=== PATIENT | female | born 1955 | race Caucasian/White ===

== ENCOUNTER 2018-10-03 14:57 | Emergency (ER) | payer OTHER, SELFPAY ==
[2018-10-03 14:58] VITALS: BP 207/92; PULSE 77; RESP 16; TEMP 36.4; O2SAT 97; BMI 49.1
--- NOTE | 2018-10-03 15:06 | RAD_ITS ---
STUDY: X-RAY - LEFT ANKLE REASON FOR EXAM: Female, 62 years old. Injury TECHNIQUE: view(s) of the ankle. COMPARISON: None. Talar dome appears intact. Plantar calcaneal spurring. Anterior process of the calcaneus is within normal limits. Fifth metatarsal base appears intact. Lateral malleolus is within normal limits. The lateral process of the talus is within normal limits. IMPRESSION: No definite evidence for acute fractures. Electronically Signed: Meño Hamilton, at 15:55 EST Tel , Service support , RAD/Ankle min 3 Views
--- NOTE | 2018-10-03 15:07 | ED.VISSUMM ---
- ER Visit Summary Date of Service: 10/03/18 Chief Complaint: Left ankle pain History of Present Illness: The patient is a 62 F who has left ankle pain. She stepped out of her truck when her ankle twisted and she fell down on her left side. No head trauma or LOC. She has pain in the left ankle. She describes it more of an inversion injury. She has pain in the medial lateral part of the ankle. She was able to walk on it but it caused her significant pain. She did ice it but took no medications for this. No previous injuries or fractures to this ankle Physical Examination: Vital signs are reviewed. Left ankle exam reveals tenderness on the medial and lateral malleolar swelling. Decreased range of motion secondary to pain. She has 2+ DP pulses. Test Results: Left ankle x-ray reveals no evidence of fracture. Emergency Department Course and Treatment: Patient was medicated with one [place] here. I will give her a walking boot as well as an NSAID for pain at home. She will ice and elevate and will follow up with her PCP Treatment Plan: [] Disposition: Discharge Impression: Left ankle sprain This note was generated with The [employer] dictation software. It may contain incorrect words, spelling, and punctuation that were not noted in review of the chart prior to signing ED Disposition - Plan for ED Patient: Chief Complaint: Lower Extremity Injury Referrals: Mg Matias [Primary Care Provider] -
[2018-10-03] MEDS: HYDROcodone Bitartrate/Apap 5/325 Tablet PO (15:22)
--- NOTE | 2018-10-03 16:00 | ED.DEP ---
ED Disposition - Plan for ED Patient: Disposition: Home or Assisted Living Chief Complaint: Lower Extremity Injury Instructions: ED Sprain Ankle W X Ray Prescriptions: Naproxen [Naprosyn] 500 mg PO BID PRN #20 tab Referrals: Mg Matias [Primary Care Provider] -
[2018-10-03 16:25] VITALS: BP 134/78; PULSE 67; RESP 16; O2SAT 97
== END 2018-10-03 16:26 | disposition home or self-care (01) ==
PROVIDERS: Emergency Provider Emergency Medicine; Family Provider Family Medicine; PCP Family Medicine
DX: S93.402A Sprain of unspecified ligament of left ankle, initial encounter (principal); I10 Essential (primary) hypertension; Z79.899 Other long term (current) drug therapy; X50.1XXA Overexertion from prolonged static or awkward postures, initial encounter; Y93.89 Activity, other specified; Y92.89 Other specified places as the place of occurrence of the external cause; Y99.8 Other external cause status
CPT/HCPCS: 73610; 99283

== ENCOUNTER 2019-06-07 08:00 | Outpatient (RCR) | payer OTHER, SELFPAY | END 2019-06-20 23:59 | LOC: NS 08:00 | PROVIDERS: Family Provider Family Medicine; PCP Family Medicine; Visit Provider Family Medicine | DX: E66.01 Morbid (severe) obesity due to excess calories (principal); Z68.42 Body mass index [BMI] 45.0-49.9, adult; Z71.3 Dietary counseling and surveillance | CPT/HCPCS: 97802; 97803 ==

== ENCOUNTER 2019-07-20 08:30 | Outpatient (RCR) | payer OTHER, SELFPAY | END 2019-07-21 23:59 | LOC: NS 08:30 | PROVIDERS: Family Provider Family Medicine; PCP Family Medicine; Visit Provider Family Medicine | DX: E66.01 Morbid (severe) obesity due to excess calories (principal); Z68.42 Body mass index [BMI] 45.0-49.9, adult; Z71.3 Dietary counseling and surveillance | CPT/HCPCS: 97803 ==

== ENCOUNTER 2019-08-09 17:28 | Outpatient (RCR) | payer OTHER, SELFPAY | END 2019-08-20 23:59 | LOC: NS 17:28 | PROVIDERS: Family Provider Family Medicine; PCP Family Medicine; Visit Provider Family Medicine | DX: Z71.3 Dietary counseling and surveillance (principal); E66.01 Morbid (severe) obesity due to excess calories; Z68.42 Body mass index [BMI] 45.0-49.9, adult | CPT/HCPCS: 97803 ==

== ENCOUNTER 2019-09-19 09:00 | Outpatient (RCR) | payer OTHER, SELFPAY | END 2019-09-20 23:59 | LOC: NS 09:00 | PROVIDERS: Family Provider Family Medicine; PCP Family Medicine; Visit Provider Family Medicine | DX: Z71.3 Dietary counseling and surveillance (principal); E66.01 Morbid (severe) obesity due to excess calories; Z68.42 Body mass index [BMI] 45.0-49.9, adult | CPT/HCPCS: 97803 ==

== ENCOUNTER 2019-10-18 09:00 | Outpatient (RCR) | payer OTHER, SELFPAY | END 2019-10-21 23:59 | LOC: NS 09:00 | PROVIDERS: Family Provider Family Medicine; PCP Family Medicine; Visit Provider Family Medicine | DX: Z71.3 Dietary counseling and surveillance (principal); E66.01 Morbid (severe) obesity due to excess calories; Z68.42 Body mass index [BMI] 45.0-49.9, adult | CPT/HCPCS: 97803 ==

== ENCOUNTER 2019-11-09 09:31 | Outpatient (RCR) | payer OTHER, SELFPAY | END 2019-11-19 23:59 | LOC: NS 09:31 | PROVIDERS: Family Provider Family Medicine; PCP Family Medicine; Visit Provider Family Medicine | DX: Z71.3 Dietary counseling and surveillance (principal); E66.01 Morbid (severe) obesity due to excess calories; Z68.42 Body mass index [BMI] 45.0-49.9, adult | CPT/HCPCS: 97803 ==

== ENCOUNTER 2019-12-08 09:00 | Outpatient (RCR) | payer OTHER, SELFPAY | END 2019-12-20 23:59 | LOC: NS 09:00 | PROVIDERS: Family Provider Family Medicine; PCP Family Medicine; Visit Provider Family Medicine | DX: Z71.3 Dietary counseling and surveillance (principal); E66.01 Morbid (severe) obesity due to excess calories; Z68.42 Body mass index [BMI] 45.0-49.9, adult | CPT/HCPCS: 97803 ==

== ENCOUNTER 2020-01-11 08:30 | Outpatient (RCR) | payer OTHER, SELFPAY | END 2020-01-19 23:59 | LOC: NS 08:30 | PROVIDERS: Family Provider Family Medicine; PCP Family Medicine; Visit Provider Family Medicine | DX: Z71.3 Dietary counseling and surveillance (principal); E66.01 Morbid (severe) obesity due to excess calories; Z68.42 Body mass index [BMI] 45.0-49.9, adult | CPT/HCPCS: 97803 ==

== ENCOUNTER 2020-02-08 10:00 | Outpatient (RCR) | payer OTHER, SELFPAY | END 2020-02-19 23:59 | LOC: NS 10:00 | PROVIDERS: Family Provider Family Medicine; PCP Family Medicine; Visit Provider Family Medicine | DX: Z71.3 Dietary counseling and surveillance (principal); E66.01 Morbid (severe) obesity due to excess calories; Z68.42 Body mass index [BMI] 45.0-49.9, adult | CPT/HCPCS: 97803 ==

== ENCOUNTER 2020-03-13 21:52 | Inpatient (IN) | payer OTHER, SELFPAY ==
[2020-03-13 21:53] VITALS: BP 93/51; PULSE 55; RESP 15; TEMP 36.6; O2SAT 99; BMI 41.1
--- NOTE | 2020-03-13 22:23 | EKG12_ITS ---
Test Reason : DIZZINESS Blood Pressure : / mmHG Vent. Rate : 051 BPM Atrial Rate : 051 BPM P-R Int : 142 ms QRS Dur : 096 ms QT Int : 450 ms P-R-T Axes : 062 -17 030 degrees QTc Int : 414 ms Sinus bradycardia Otherwise normal ECG Confirmed by MIRYAM MEJIA ([id number]), tape editor YANETH RAMÍREZ ([id number]) on 03/20/2020 8:07:14 AM Referred By: RAGHAV Confirmed By:MIRYAM MEJIA
[2020-03-13 22:54] VITALS: BP 91/61; PULSE 50; RESP 16; O2SAT 99
[2020-03-13 22:54] LABS: Absolute Lymphocyte Count 2.62 X10^3/uL (0.83-4.51); Absolute Neutrophil Count 17.4 X10^3/uL (2.0-7.7); Basophil# 0.05 X10^3/uL; Basophil% 0.2 % (0-1); Eosinophil# 0.22 X10^3/uL; Hematocrit 37.2 % (37-47); Hemoglobin 11.7 g/dL (12.0-15.0); Lymphocyte # 2.62 X10^3/ul (4.0); Lymphocyte % 11.7 % (19-41); Mean Corp Hgb Conc 31.5 g/dL (32-36); Mean Corpuscular Hgb 29.1 pg (27.0-32.0); Mean Corpuscular Volume 92.5 fL (81-99); Mean Platelet Vol. 11.3 fl (6.2-12.0); Monocyte# 1.97 X10^3/uL; Monocyte% 8.8 % (0-10); NRBC Flagged by Analyzer 0 % (0-5); Neutrophil # 17.35 X10^3/uL (2.7-7.7); Neutrophil % 77.7 % (47-70); POSITIVE DIFFERENTIAL YES; Platelet Count 264 K/mm3 (150-450); RBC Distribution Width CV 13.5 % (11.6-14.6); RBC Distribution Width SD 46.5 fl (35.1-43.9); Red Blood Count 4.02 M/mm3 (4.2-5.4); White Blood Count 22.3 K/mm3 (4.4-11.0)
[2020-03-13] MEDS: 0.9% Normal Saline 1,000 ML 1000 ML IV (22:56)
[2020-03-13 22:57] VITALS: BP 86/58; BP 91/61; BP 98/59; PULSE 49; PULSE 53; PULSE 60
--- NOTE | 2020-03-13 23:00 | RAD_ITS ---
STUDY: X-RAY CHEST REASON FOR EXAM: Female, 64 years old. Dizziness, history of vertigo. TECHNIQUE: AP portable chest. COMPARISON: None. FINDINGS: The lungs are clear and expanded. There is no demonstrated pleural abnormality. No pneumothorax. Large hiatal hernia. Normal size heart. Normal mediastinum and garland. Normal visualized pulmonary arteries. Normal visualized aortic arch and descending thoracic aorta. Normal visualized thoracic spine. Normal visualized ribs, clavicles, and shoulders. There is no demonstrated abnormality of the visualized soft tissue structures of the upper abdomen. RAD/Chest 1 View (Portable) IMPRESSION: No acute cardiopulmonary disease. Large hiatal hernia. Electronically Signed: Lorenzo Robledo MD at 23:16 EDT , Service support ,
[2020-03-13 23:09] LABS: ALB/GLOB Ratio 0.9 RATIO (0.9-2.4); AST(SGOT) 16 U/L (15-37); Alanine Aminotransfer ALT/SGPT 18 U/L (13-56); Albumin, Serum 3.8 g/dL (3.2-5.0); Alkaline Phosphatase 109 U/L (45-117); Anion Gap 7 (5-15); BUN 29 mg/dL (7-18); BUN/Creat Ratio 10.5 RATIO (10-20); Calcium,Total 10.8 mg/dL (8.5-10.1); Chloride 102 mmol/L (98-107); Creatinine, Serum 2.75 mg/dL (0.55-1.02); EST Glomerular Filtration Rate 19 mL/min (>60); Est Glom Filt Rate - Afr Amer 22 mL/min (>60); Globulin 4.2 g/dL (2.2-4.2); Glucose 121 mg/dL (74-106); Potassium 4.1 mmol/L (3.5-5.1); Sodium Level 137 mmol/L (136-145)
[2020-03-13 23:17] LABS: Differential Comment SCANNED; Differential Indicated SCAN CRITERIA MET
[2020-03-13 23:41] LABS: Mucous, Urine 0 SEEN /hpf (<or=2+)
[2020-03-13 23:43] LABS: Color, Urine Yellow (Yellow); Glucose, Dipstick Normal (Normal); Ketone-Dipstick Negative (Negative); Leukocyte Esterase-Dipstick 500 /ul (Negative); Nitrite-Dipstick Negative (Negative); Occult Blood-Urine 150 /ul (Negative); Protein-Dipstick 30 mg/dl (Negative); Urine Bilirubin Dipstick Negative (Negative); Urine Clarity Sl. Cloudy (Clear); Urine Urobilinogen 1 mg/dl (Normal)
[2020-03-13 23:51] LABS: Bacteria 2+ /hpf (None Seen); Red Blood Cells-Urine 10-25 SEEN /hpf (0-5); Squamous Epithelial Cells - UA 5-10 SEEN /hpf (5-10); White Blood Cells 10-25 SEEN /hpf (0-5)
[2020-03-13] MEDS: 0.9% Normal Saline 1,000 ML 999 ML IV (23:52)
[2020-03-14] VITALS (35 sets, daily range): BP systolic 76–134; BP diastolic 35–90; PULSE 46–75; RESP 13–29; TEMP 36.2–36.6; O2SAT 95–100; BMI 41.9
--- NOTE | 2020-03-14 00:06 | HP.PCM_ITS ---
Problem List (1) Severe sepsis Status: Acute (2) Cystitis Status: Acute (3) Bradycardia Status: Acute (4) JERILYN (acute kidney injury) Status: Acute History of Present Illness Date of Admission: 03/14/20 Chief Complaint: Lightheadedness. The patient is a 64 year old F with a significant history of vertigo; hypertension; and thyroid cancer status post thyroidectomy who presents emergency department with lightheadedness. Her lightheadedness started about a week ago is been on and off. On the day of presentation she went to work and because she was lightheaded and nearly passed out she was told to seek medical care. Also about a week ago patient fell. She is unsure whether she passed out with her falling. Patient reports decrease in frequency of urination. She denies any other urinary symptoms. Patient was hypotensive at the emergency department. She had leukocytosis and her urinalysis was abnormal. Further her creatinine was 2.75. Patient reported that recently her creatinine at the PCPs office was around 1.4 and for which reason her diuretics were stopped. Past Medical History Medical History: Medical History (Last Updated 03/14/20 @ 01:[address] Boby Fuentes MD) Hypertension I10 Allergies No Known Allergies Allergy (Verified 03/13/20 21:53) Home Medications: Ambulatory Orders Medication Instructions Recorded Levothyroxine Sodium [Synthroid] 125 mcg PO DAILY 02/23/14 Meclizine HCl [Antivert] 25 mg PO 4X/DAY PRN PRN #40 tablet 02/23/14 Ferrous Sulfate [Iron] 325 mg PO BID 03/04/17 Losartan Potassium [Cozaar] 100 mg PO DAILY 03/04/17 Carvedilol [Coreg] 3.125 mg PO BID 10/03/18 Naproxen [Naprosyn] 500 mg PO BID PRN #20 tab 10/03/18 Pantoprazole Sodium [Protonix] 40 mg PO DAILY 10/03/18 Solifenacin Succinate [Vesicare] 5 mg PO DAILY 10/03/18 Surgical History: cholecystectomy, hysterectomy, - - Thyroidectomy Smoking Status: Former smoker - *Family History Maternal History Items: Cancer - Lung and pancreatic cancer. Paternal History Items: Cancer - Lung cancer Review of Systems Constitutional: Denies: Chills, Fever, Weight Change HEENT: Denies: Head Aches, Sinus Congestion, Sinus Drainage Cardiovascular: Reports: Light Headedness. Denies: Chest Pain, Palpitations Respiratory: Denies: Cough, Shortness of breath at rest, Sputum production Gastrointestinal: Denies: Abdominal Pain, Nausea, Vomiting Genitourinary: Reports: Frequency - Decreased urination. Denies: Dysuria Musculoskeletal: Denies: Joint Pain, Joint Tenderness Skin: Denies: Rash, Wounds Neurological: Denies: Numbness, Tingling, Focal weakness Psychiatric: Denies: Anxiety, Depression, Homicidal Ideations, Suicidal Ideations Hematologic/ Lymphatic: Denies: Easy Bruising, Easy Bleeding VTE Information - Inpt Only VTE Present on Admission: No VTE Mechan Device Prophylaxis: None VTE Pharm Prophylaxis ordered?: Yes Patient Problems: Active and Suspected Problems (Last Updated 03/14/20 @ 01:[address] Boby Fuentes MD) Severe sepsis (Acute) Cystitis (Acute) Bradycardia (Acute) JERILYN (acute kidney injury) (Acute) - Physical Exam Vitals/I&O's: Vital Signs Temp Pulse Resp BP Pulse Ox 97.8 F 55 L 16 101/71 100 03/13/20 21:53 03/14/20 00:04 03/14/20 00:04 03/14/20 00:04 03/14/20 00:04 Oxygen Delivery Method Room Air Weight: 98.883 kg Body Mass Index (BMI) 41.1 Intake and Output for Last 24 Hours 03/12/20 03/13/20 03/14/20 23:59 23:59 23:59 Intake Total 1000 / 1000 Balance 1000 / 1000 General: Alert, Oriented x3, Cooperative HEENT: Atraumatic, PERRLA, EOMI, Normocephalic Neck: Supple, No JVD, Negative Carotid Bruits Lungs: Clear to auscultation, Normal air movement Cardiovascular: Normal S1, Normal S2, No murmurs, Bradycardic Abdomen: Bowel Sounds Present, Soft, Non Tender Extremities: No edema, Capillary Refill Less than 3 Seconds Skin: No rashes, No breakdown Musculoskeletal: No Tenderness to Palpation of Joints or Extremities Neurological: Cranial nerves II-XII grossly intact Psych/Mental Status: Normal Affect, Appropriate Laboratory Results 03/13/20 22:20: WBC 22.3 H, RBC 4.02 L, Hgb 11.7 L, Hct 37.2, MCV 92.5, MCH 29.1, MCHC 31.5 L, RDW Std Deviation 46.5 H, RDW Coeff of Dwain 13.5, Plt Count 264, MPV 11.3, Immature Gran % (Auto) 0.600, Neut % (Auto) 77.7 H, Lymph % (Auto) 11.7 L, [place] % (Auto) 8.8, Eos % (Auto) 1.0, Baso % (Auto) 0.2, Absolute Neuts (auto) 17.4 H, Absolute Lymphs (auto) 2.62, Nucleated RBC % 0, Differential Comment SCANNED, Diff Path Review January03/13/20 22:20: Sodium 137, Potassium 4.1, Chloride 102, Carbon Dioxide 28.0, Anion Gap 7, BUN 29 H, Creatinine 2.75 H, Estim Creat Clear Calc 15.80, Est GFR (MDRD) Af Amer 22 L, Est GFR (MDRD) Non-Af 19 L, BUN/Creatinine Ratio 10.5, Glucose 121 H, Calcium 10.8 H, Total Bilirubin 1.80 H, AST 16, ALT 18, Alkaline Phosphatase 109, Troponin I < 0.015, Total Protein 8.0, Albumin 3.8, Globulin 4.2, Albumin/Globulin Ratio 0.9 03/13/20 22:20: Lactic Acid 1.0 03/13/20 23:35: Urine Color Yellow, Urine Clarity Sl. Cloudy, Urine pH 5.0, Ur Specific [place] 1.020, Urine Protein 30 H, Urine Glucose (UA) Normal, Urine Ketones Negative, Urine Occult Blood 150 H, Urine Nitrite Negative, Urine Bilirubin Negative, Urine Urobilinogen 1 H, Ur Leukocyte Esterase 500 H, Urine RBC 10-25 SEEN, Urine WBC 10-25 SEEN, Ur Squamous Epith Cells 5-10 SEEN, Urine Bacteria 2+, Urine Mucus 0 SEEN Current Medications Sodium Chloride () 1,000 mls @ 999 mls/hr IV .Q1H1M ONE Stop: 03/14/20 00:36 Last Admin: 03/13/20 23:52 Dose: 999 mls/hr Documented by: Vancomycin HCl (Vancomycin) 1,000 mg in 200 mls @ 200 mls/hr IV X1 ONE Stop: 03/14/20 01:29 Assessment/Plan All Active Problems (Last Updated 03/14/20 @ 01:[address] Boby Fuentes MD) Severe sepsis (Acute) Cystitis (Acute) Bradycardia (Acute) JERILYN (acute kidney injury) (Acute) The patient is a 64 year old F with a significant history of vertigo; hypertension; and thyroid cancer status post thyroidectomy who presents emergency department with lightheadedness; presyncope; and found to have leukocytosis; acute bradycardia; and severely elevated creatinine. Severe sepsis Systolic blood pressure of less than 90. Patient received normal saline 30 mL's per kilogram bolus per septic shock protocol and patient responded. She has a white count of 22.3 with neutrophilic predominance. Emergency department doctor reported 1 systolic blood pressure in the 70s. Also her blood pressure standing was 86/58. Chest x-ray was unremarkable. Urinalysis was abnormal. Urine culture is pending. Lactic acid was normal. Vancomycin and Zosyn were given at emergency department. Zosyn IV ordered inpatient. Admit to intensive care unit Continue saline at 150 mL's per hour. Trend CBC and BMP. Hold home blood pressure medications. Lamp Mechanic consult. Symptomatic bradycardia. Patient on Coreg. Held. JERILYN Creatinine on presentation was 2.75. Reportedly recently her creatinine was 1.4 at the outpatient setting. Review of old record showed her on 03/03/2017 her creatinine was 0.97. And on 02/23/2014 her creatinine was 0.9. Her BUN is 29. BUN over creatinine is at 10.5. Likely intrinsic renal. Home medications include losartan and naproxen. Hold both losartan and naproxen. Avoid nephrotoxins. Trend BMP. Gets urine electrolytes including urine creatinine; urine urea; urine sodium. Get ultrasound of urine and bladder. Consults nephrology Received IV bolus at the emergency department per sepsis protocol. Continue patient on normal saline at 150 mL's per hour. DVT prophylaxis Subcutaneous heparin ordered. Inpatient E&M: 35170 Init Hosp L3
[2020-03-14] MEDS: Vancomycin IV 1,000 MG/200 ML BAG 200 MG IV (00:22)
--- NOTE | 2020-03-14 01:00 | US_ITS ---
STUDY: RENAL ULTRASOUND - COMPLETE REASON FOR EXAM: Female, 64 years old. JERILYN elevated BUN/creatinine TECHNIQUE: Ultrasound evaluation of the kidneys was performed with real-time and static mcfarlane-scale imaging. COMPARISON: None. FINDINGS: RIGHT KIDNEY: Normal location of the right kidney, which is normal in size. The right kidney measures 9.3 x 4.6 x 4.1 cm. There is a normal cortex of the right kidney. The renal cortex measures 1.1 cm. There is no right renal mass or cyst. There are no right renal calculi. There is no right hydronephrosis. DISTAL RIGHT URETER: There is non-visualization of the distal right ureter. There is no demonstrated right ureterovesical junction calculus. There is a visualized right ureteral jet. LEFT KIDNEY: Normal location of the left kidney, which is normal in size. The left kidney measures 9.6 x 4.8 x 4.3 cm. There is a normal cortex of the left kidney. The renal cortex measures 1.5 cm. There is no left renal mass or cyst. There are no left renal calculi. There is no left hydronephrosis. DISTAL LEFT URETER: There is non-visualization of the distal left ureter. There is no demonstrated left ureterovesical junction calculus. There is a visualized left ureteral jet. AORTA: There is no elongation or tortuosity of the abdominal aorta. I.V.C.: The IVC is patent. BLADDER: The bladder is sonographically normal US/Kidney and Bladder IMPRESSION: No suspicious sonographic findings Electronically Signed: Daniel Mann MD at 8:57 EDT , Service support ,
[2020-03-14] MEDS: 0.9% Normal Saline 1,000 ML 150 ML IV ×4 (01:33→20:46)
--- NOTE | 2020-03-14 02:01 | ED.VIS.GEN ---
History of Present Illness Chief Complaint: Dizziness Narrative: Patient presenting for evaluation secondary to lightheadedness. Patient states that over the course of about the last week and a half she has been dealing with lightheadedness. She reports that this is a lightheaded type feeling and not a vertiginous feeling as she has a history of vertigo that is worsened by rolling over in bed. Patient states that the lightheadedness has been bad enough that occasionally she is even had some syncopal episodes over the course of the last week and a half. She denies that there is any sort of preceding chest pain palpitations or shortness of breath associated with this. Patient states that she felt bad enough at work today that her boss sent her to the hospital to get checked out. Patient does have an underlying history of hypertension, was recently taken off of her diuretic due to some increased creatinine numbers. She denies recent infectious signs or symptoms such as fever cough nausea vomiting or diarrhea. Patient does report that she has had around a 40 to 50 pound intentional weight loss recently due to participating in a weight loss program. Review of systems otherwise negative. Past Medical History - Allergies and Home Meds Allergies/Adverse Reactions: Allergies No Known Allergies Allergy (Verified 03/13/20 21:53) Prior records reviewed: Yes Past Medical History: - - Hypertension, GERD, hypothyroidism Surgical History: cholecystectomy, hysterectomy, - - Thyroidectomy Lives: Spouse/ Significant Other Smoking Status: Former smoker Alcohol: None Drugs: None - Family History Maternal Family History: Reports: Cancer - Lung and pancreatic cancer. Paternal Family History: Reports: Cancer - Lung cancer Review of Systems All systems negative except as indicated General: Reports: - - Lightheadedness Eyes: Denies: Visual changes - bilaterally, Diplopia ENT: Denies: Rhinorrhea, Sore throat Cardiovascular: Denies: Chest pain, Palpitations Respiratory: Denies: Dyspnea, Cough, Dyspnea on exertion Gastrointestinal: Denies: Abdominal pain, Nausea, Vomiting, Diarrhea, Melena, Hematochezia Genitourinary: Denies: Dysuria, Hematuria, Frequency Musculoskeletal: Denies: Back pain, Extremity Pain Skin: Denies: Rash, Wounds Neurological: Denies: Headache, Weakness, Numbness Physical Exam Vital Signs/Narrative: Vital Signs Temp Pulse Pulse Pulse Pulse Resp BP 03/14/20 00:20 97.9 F 55 L 17 108/90 H 03/14/20 00:04 55 L 16 101/71 03/13/20 22:57 49 L 53 L 60 03/13/20 22:54 50 L 16 91/61 BP BP BP Pulse Ox 03/14/20 00:20 99 03/14/20 00:04 100 03/13/20 22:57 91/61 98/59 L 86/58 L 03/13/20 22:54 99 Inital Vital Signs reviewed: Yes General: Well nourished, Well developed, No Acute Distress Head: Normocephalic, Atraumatic Eyes: Perrl, EOMI ENT: Moist mucous membranes, No rhinorrhea Neck: Supple, Nontender Cardiovascular: Regular rhythm, Bradycardia, - - 2+ radial pulses bilaterally symmetric Respiratory: No distress, CTA bilaterally, Chest nontender Abdomen: Soft, Nontender, Nondistended, Normal bowel sounds Back: Nontender, Normal Inspection Extremities: Nontender, No edema Skin: Normal color, No rash Neurological: Alert, Oriented x3, Cranial nerves II-XII grossly intact, Normal Strength, Normal Sensation Psychological: Normal affect, Normal Mood Diagnostic/Tx/Re-eval Clinical Impression(s) from Imaging Studies Chest X-Ray 03/13/20 23:00 IMPRESSION: No acute cardiopulmonary disease. Large hiatal hernia. Electronically Signed: Lorenzo Robledo MD at 23:16 EDT , Service support , Laboratory Data 03/13/20 03/13/20 03/13/20 22:20 22:20 22:20 WBC 22.3 H RBC 4.02 L Hgb 11.7 L Hct 37.2 MCV 92.5 MCH 29.1 MCHC 31.5 L RDW Std Deviation 46.5 H RDW Coeff of Dwain 13.5 Plt Count 264 MPV 11.3 Immature Gran % (Auto) 0.600 Neut % (Auto) 77.7 H Lymph % (Auto) 11.7 L [place] % (Auto) 8.8 Eos % (Auto) 1.0 Baso % (Auto) 0.2 Absolute Neuts (auto) 17.4 H Absolute Lymphs (auto) 2.62 Nucleated RBC % 0 Differential Comment SCANNED Diff Path Review May foll Sodium 137 Potassium 4.1 Chloride 102 Carbon Dioxide 28.0 Anion Gap 7 BUN 29 H Creatinine 2.75 H Estim Creat Clear Calc 15.80 Est GFR (MDRD) Af Amer 22 L Est GFR (MDRD) Non-Af 19 L BUN/Creatinine Ratio 10.5 Glucose 121 H Lactic Acid 1.0 Calcium 10.8 H Total Bilirubin 1.80 H AST 16 ALT 18 Alkaline Phosphatase 109 Troponin I < 0.015 Total Protein 8.0 Albumin 3.8 Globulin 4.2 Albumin/Globulin Ratio 0.9 Urine Color Urine Clarity Urine pH Ur Specific [place] Urine Protein Urine Glucose (UA) Urine Ketones Urine Occult Blood Urine Nitrite Urine Bilirubin Urine Urobilinogen Ur Leukocyte Esterase Urine RBC Urine WBC Ur Squamous Epith Cells Urine Bacteria Urine Mucus 03/13/20 23:35 WBC RBC Hgb Hct MCV MCH MCHC RDW Std Deviation RDW Coeff of Dwain Plt Count MPV Immature Gran % (Auto) Neut % (Auto) Lymph % (Auto) [place] % (Auto) Eos % (Auto) Baso % (Auto) Absolute Neuts (auto) Absolute Lymphs (auto) Nucleated RBC % Differential Comment Diff Path Review Sodium Potassium Chloride Carbon Dioxide Anion Gap BUN Creatinine Estim Creat Clear Calc Est GFR (MDRD) Af Amer Est GFR (MDRD) Non-Af BUN/Creatinine Ratio Glucose Lactic Acid Calcium Total Bilirubin AST ALT Alkaline Phosphatase Troponin I Total Protein Albumin Globulin Albumin/Globulin Ratio Urine Color Yellow Urine Clarity Sl. Cloudy Urine pH 5.0 Ur Specific [place] 1.020 Urine Protein 30 H Urine Glucose (UA) Normal Urine Ketones Negative Urine Occult Blood 150 H Urine Nitrite Negative Urine Bilirubin Negative Urine Urobilinogen 1 H Ur Leukocyte Esterase 500 H Urine RBC 10-25 SEEN Urine WBC 10-25 SEEN Ur Squamous Epith Cells 5-10 SEEN Urine Bacteria 2+ Urine Mucus 0 SEEN - EKG Initial EKG Interpretation: - - Sinus bradycardia with a rate of 51, normal AR and QTc intervals. Isoelectric ST segments normal T waves no evidence of acute ischemia. - Medical Decision Making Patient presented secondary to dizziness. She is relatively well-appearing, but was found to be both hypotensive as well as bradycardic. IV was established she was given fluid resuscitation laboratory studies were obtained. PA and lateral chest x-ray by my personal review as well as radiology demonstrates no evidence of infection. Laboratory work-up shows the patient to have a leukocytosis above 20. Chemistry shows acute kidney injury with creatinine over 2. Lactic acid was found to be normal. Urinalysis shows potential for infection. Patient's blood pressure was responsive to fluids. I do not have a specific source of infection at this time, but the patient was empirically given vancomycin and Zosyn. Actually have more of a suspicion that the patient's lightheadedness is due to her blood pressure medications causing her to be hypotensive and have hypoperfusion of her kidneys, but regardless cultures were sent and the patient will be admitted for further work-up and treatment. Patient was discussed with the hospitalist and was admitted to intensive care due to her fluid responsive hypotension. - Critical Care Time Critical care time (excluding procedures): 30-74 minutes ED Disposition - Plan for ED Patient: Disposition: Acute Care Hospital [facility] Diagnosis: JERILYN (acute kidney injury), Bradycardia, Cystitis, Severe sepsis
[2020-03-14 02:09] LABS: Urine Sodium 39 mmol/L (Not Establ.)
[2020-03-14 04:32] LABS: Absolute Lymphocyte Count 3.47 X10^3/uL (0.83-4.51); Absolute Neutrophil Count 10.6 X10^3/uL (2.0-7.7); Basophil# 0.06 X10^3/uL; Basophil% 0.4 % (0-1); Eosinophil# 0.38 X10^3/uL; Eosinophils% 2.4 % (0-5); Hematocrit 31.1 % (37-47); Hemoglobin 9.8 g/dL (12.0-15.0); Lymphocyte # 3.47 X10^3/ul (4.0); Lymphocyte % 21.9 % (19-41); Mean Corp Hgb Conc 31.5 g/dL (32-36); Mean Corpuscular Hgb 29.5 pg (27.0-32.0); Mean Corpuscular Volume 93.7 fL (81-99); Mean Platelet Vol. 11.1 fl (6.2-12.0); Monocyte# 1.29 X10^3/uL; Monocyte% 8.1 % (0-10); NRBC Flagged by Analyzer 0 % (0-5); Neutrophil # 10.57 X10^3/uL (2.7-7.7); Neutrophil % 66.8 % (47-70); Platelet Count 199 K/mm3 (150-450); RBC Distribution Width CV 13.8 % (11.6-14.6); RBC Distribution Width SD 47.2 fl (35.1-43.9); Red Blood Count 3.32 M/mm3 (4.2-5.4); White Blood Count 15.8 K/mm3 (4.4-11.0)
[2020-03-14 04:45] LABS: Anion Gap 6 (5-15); BUN 28 mg/dL (7-18); BUN/Creat Ratio 13.5 RATIO (10-20); Calcium,Total 9.7 mg/dL (8.5-10.1); Chloride 107 mmol/L (98-107); Creatinine, Serum 2.07 mg/dL (0.55-1.02); EST Glomerular Filtration Rate 26 mL/min (>60); Est Glom Filt Rate - Afr Amer 31 mL/min (>60); Estimated Creatinine Clearance 19.98 ml/min; Glucose 96 mg/dL (74-106); Sodium Level 139 mmol/L (136-145)
[2020-03-14] MEDS: Levothyroxine 125 MCG Tablet PO (05:34)
[2020-03-14] MEDS: Heparin Injection (Vial) 5,000 UNIT/ML VIAL 5000 UNIT SC ×3 (05:34→20:53)
--- NOTE | 2020-03-14 06:18 | PCM.CON.CC ---
Problem List (1) Weight loss, intentional Status: Acute (2) Severe sepsis Status: Acute (3) Cystitis Status: Acute (4) Bradycardia Status: Acute (5) JERILYN (acute kidney injury) Status: Acute Reason for Consult Date of Consultation: 03/14/20 Reason for Consultation: Sepsis History of Present Illness: The patient is a 64 year old F, with past medical history listed below, who presented to [facility] on 03/14/2020 secondary to vertigo, orthostatic lightheadedness and presyncope. Patient reported that she had a similar type episode approximately a week ago, but had attributed this to not eating for 9 hours. When this recurred, patient was advised to come to the ER for evaluation. Patient had reported a decrease in urination and some mild dysuria. In the ER, patient was noted to be hypotensive with a leukocytosis and abnormal UA. Patient also noted to have an increase in creatinine to 2.75, which is significantly above baseline of 1.4. Patient has been treated for hypertension in the past and was on Coreg and a diuretic. The diuretic was recently stopped secondary to elevation of creatinine. Overnight, patient has remained hemodynamically stable. Patient has been bradycardic, but no fluid boluses or pressors have been required. Patient reports subjective improvement in overall condition, but states I have not stood up to test that yet. Patient does report a 40 pound weight loss secondary to dietary modification. Patient denies any chest pain, bowel pain, nausea or vomiting. Patient did have some constipation recently that was responsive to laxative therapy. Patient denies any lower extremity swelling, rashes or trauma. Patient does have a history of a thyroidectomy, but believes her thyroid is normal. Review of systems otherwise negative from a constitutional, HEENT, respiratory, cardiovascular, GI, genitourinary, musculoskeletal, skin, neurologic, psychiatric and hematologic system unless stated above. Past Medical History Medical History: Medical History (Last Updated 03/14/20 @ 01:[address] Boby Fuentes MD) Hypertension I10 Allergies No Known Allergies Allergy (Verified 03/13/20 21:53) Home Medications: Ambulatory Orders Medication Instructions Recorded Levothyroxine Sodium [Synthroid] 125 mcg PO DAILY 02/23/14 Meclizine HCl [Antivert] 25 mg PO 4X/DAY PRN PRN #40 tablet 02/23/14 Ferrous Sulfate [Iron] 325 mg PO BID 03/04/17 Losartan Potassium [Cozaar] 100 mg PO DAILY 03/04/17 Carvedilol [Coreg] 3.125 mg PO BID 10/03/18 Naproxen [Naprosyn] 500 mg PO BID PRN #20 tab 10/03/18 Pantoprazole Sodium [Protonix] 40 mg PO DAILY 10/03/18 Solifenacin Succinate [Vesicare] 5 mg PO DAILY 10/03/18 Surgical History: cholecystectomy, hysterectomy, - - Thyroidectomy Lives: Spouse/ Significant Other Smoking Status: Former smoker Alcohol: None Drugs: None - *Family History Maternal History Items: Cancer - Lung and pancreatic cancer. Paternal History Items: Cancer - Lung cancer Review of Systems Comment: See HPI Patient Problems: Active and Suspected Problems (Last Updated 03/14/20 @ 01:[address] Boby Fuentes MD) Severe sepsis (Acute) Cystitis (Acute) Bradycardia (Acute) JERILYN (acute kidney injury) (Acute) Weight loss, intentional (Acute) Objective: Chest x-ray was personally reviewed and appears to be within normal limits. - Physical Exam Vitals/I&O's: Vital Signs Temp Pulse Resp BP Pulse Ox 36.3 C L 52 L 29 H 97/65 99 03/14/20 02:10 03/14/20 05:00 03/14/20 05:00 03/14/20 05:00 03/14/20 05:00 Oxygen Delivery Method Room Air Weight: 97.2 kg Body Mass Index (BMI) 41.9 Intake and Output for Last 24 Hours 03/12/20 03/13/20 03/14/20 23:59 23:59 23:59 Intake Total 2425 / 2425 Balance 2425 / 2425 General: Alert, Oriented x3, Cooperative, No apparent distress, Well developed, - - Obese. Speaking in full sentences. HEENT: Atraumatic, PERRLA, EOMI, Normocephalic, - - No scleral icterus or injection noted Oral: Moist Mucosa, No Gingival or Mucosal Lesions/ Ulcerations Neck: Supple, No JVD, No Nodes, Trachea Midline Lungs: Clear to auscultation, Normal air movement, No rhonchi, No wheeze, No rales Cardiovascular: Regular Rhythm, Normal S1, Normal S2, No murmurs, Bradycardic, No rub noted, No Gallop, - - Sinus bradycardia noted on telemetry Abdomen: Bowel Sounds Present, Soft, Non Tender, Non-Distended, Obese Extremities: No clubbing, No cyanosis, No edema, Capillary Refill Less than 3 Seconds Skin: No rashes, No breakdown Musculoskeletal: No Tenderness to Palpation of Joints or Extremities Lymphatic: No Cervical, Supraclavicular, or Inguinal Adenopathy Neurological: Cranial nerves II-XII grossly intact, Neuro grossly intact, Motor Exam 5/5 strength throughout Psych/Mental Status: Alert and oriented to time, place, person, mood and affect Laboratory Results 03/13/20 22:20: WBC 22.3 H, RBC 4.02 L, Hgb 11.7 L, Hct 37.2, MCV 92.5, MCH 29.1, MCHC 31.5 L, RDW Std Deviation 46.5 H, RDW Coeff of Dwain 13.5, Plt Count 264, MPV 11.3, Immature Gran % (Auto) 0.600, Neut % (Auto) 77.7 H, Lymph % (Auto) 11.7 L, [place] % (Auto) 8.8, Eos % (Auto) 1.0, Baso % (Auto) 0.2, Absolute Neuts (auto) 17.4 H, Absolute Lymphs (auto) 2.62, Nucleated RBC % 0, Differential Comment SCANNED, Diff Path Review January foll 03/13/20 22:20: Sodium 137, Potassium 4.1, Chloride 102, Carbon Dioxide 28.0, Anion Gap 7, BUN 29 H, Creatinine 2.75 H, Estim Creat Clear Calc 15.80, Est GFR (MDRD) Af Amer 22 L, Est GFR (MDRD) Non-Af 19 L, BUN/Creatinine Ratio 10.5, Glucose 121 H, Calcium 10.8 H, Total Bilirubin 1.80 H, AST 16, ALT 18, Alkaline Phosphatase 109, Troponin I < 0.015, Total Protein 8.0, Albumin 3.8, Globulin 4.2, Albumin/Globulin Ratio 0.9 03/13/20 22:20: Lactic Acid 1.0 03/13/20 23:35: Urine Color Yellow, Urine Clarity Sl. Cloudy, Urine pH 5.0, Ur Specific [place] 1.020, Urine Protein 30 H, Urine Glucose (UA) Normal, Urine Ketones Negative, Urine Occult Blood 150 H, Urine Nitrite Negative, Urine Bilirubin Negative, Urine Urobilinogen 1 H, Ur Leukocyte Esterase 500 H, Urine RBC 10-25 SEEN, Urine WBC 10-25 SEEN, Ur Squamous Epith Cells 5-10 SEEN, Urine Bacteria 2+, Urine Mucus 0 SEEN 03/13/20 23:35: Urine Creatinine 224.00 03/13/20 23:35: Ur Random Sodium 39 03/14/20 04:25: WBC 15.8 H, RBC 3.32 L, Hgb 9.8 L, Hct 31.1 L, MCV 93.7, MCH 29.5, MCHC 31.5 L, RDW Std Deviation 47.2 H, RDW Coeff of Dwain 13.8, Plt Count 199, MPV 11.1, Immature Gran % (Auto) 0.400, Neut % (Auto) 66.8, Lymph % (Auto) 21.9, [place] % (Auto) 8.1, Eos % (Auto) 2.4, Baso % (Auto) 0.4, Absolute Neuts (auto) 10.6 H, Absolute Lymphs (auto) 3.47, Nucleated RBC % 0 03/14/20 04:25: Sodium 139, Potassium 4.0, Chloride 107, Carbon Dioxide 26.0, Anion Gap 6, BUN 28 H, Creatinine 2.07 H, Estim Creat Clear Calc 19.98, Est GFR (MDRD) Af Amer 31 L, Est GFR (MDRD) Non-Af 26 L, BUN/Creatinine Ratio 13.5, Glucose 96, Calcium 9.7 Clinical Impression(s) from Imaging Studies Chest X-Ray 03/13/20 23:00 IMPRESSION: No acute cardiopulmonary disease. Large hiatal hernia. Electronically Signed: Lorenzo Robledo MD at 23:16 EDT , Service support , Current Medications Acetaminophen (Tylenol) 650 mg PO Q6H PRN PRN PRN Reason: Pain Score 1-10/Temp > 100.7 F Dextrose (D50w Syringe) 0 gm IV X1 PRN; Protocol PRN Reason: Hypoglycemia Ferrous Sulfate (Ferrous Sulfate) 325 mg PO 1200,1700 MELISSA Glucagon () 1 mg IM .X1 PRN PRN Reason: Hypoglycemia Heparin Sodium (Porcine) (Heparin Na) 5,000 unit SC Q8 [facility] Last Admin: 03/14/20 05:34 Dose: 5,000 unit Documented by: Sodium Chloride () 1,000 mls @ 150 mls/hr IV .Q6H40M [facility] Last Admin: 03/14/20 01:33 Dose: 150 mls/hr Documented by: Piperacillin Sod/Tazobactam (Sod 3.375 gm/ Sodium Chloride) 50 mls @ 12.5 mls/hr IV Q12 [facility] Levothyroxine Sodium (Synthroid) 125 mcg PO DAILY@0600 [facility] Last Admin: 03/14/20 05:34 Dose: 125 mcg Documented by: Levothyroxine Sodium (Synthroid) 125 mcg PO Goldberg@0600 [facility] Magnesium Hydroxide (Milk Of Magnesia) 30 ml PO DAILY PRN PRN PRN Reason: Constipation Meclizine HCl (Antivert) 25 mg PO 4X/DAY PRN PRN PRN Reason: Vertigo Melatonin (Melatonin) 3 mg PO QHS PRN PRN PRN Reason: INSOMNIA Ondansetron HCl (Zofran) 4 mg IV Q8H PRN PRN PRN Reason: NAUSEA/VOMITING Pantoprazole Sodium (Protonix) 40 mg PO DAILY [facility] Sodium Chloride () 10 - 40 ml IV UD PRN PRN Reason: SALINE FLUSH Tolterodine Tartrate (Detrol La) 2 mg PO DAILY [facility] Assessment/Plan Active and Suspected Problems (Last Updated 03/14/20 @ 01:[address] Boby Fuentes MD) Severe sepsis (Acute) Cystitis (Acute) Bradycardia (Acute) JERILYN (acute kidney injury) (Acute) Weight loss, intentional (Acute) RECOMMENDATIONS: 1. Continue empiric antibiotics pending culture results 2. Agree with fluid resuscitation 3. Continue to hold home antihypertensive medications 4. Await renal ultrasound 5. Likely okay to leave the intensive care unit IMPRESSIONS: 1. Orthostatic hypotension with possible severe sepsis Unclear etiology at this time. Patient has been reporting some mild dysuria and does have leukocyte esterase noted on UA. Patient is on broad-spectrum antibiotics at this time with improvement in leukocytosis. Singh cultures are currently pending. Would continue antibiotics until cultures are resulted. Patient is also had a significant weight loss and may have accumulated beta-caprice leading to bradycardia overnight. Would continue to hold all antihypertensive medications. No pressors are indicated at this time. 2. Acute kidney injury Clinical suspicion for prerenal etiology. Patient did have some increase in creatinine, likely associated with diuretic therapy recently, but presentation at 2.75 is significantly higher. Patient is responding to fluid resuscitation. Continue to hold naproxen and losartan. Reasonable to obtain a ultrasound, but is making good urine at this time. We will continue to monitor. 3. Morbid obesity/recent weight loss/hypothyroidism/hypertension Complicates care, management, recovery and prognosis. Okay to continue with baseline Synthroid medication. Would hold antihypertensives for now. Likely okay to leave the intensive care unit. Inpatient E&M: 54936 Init Hosp L3
--- NOTE | 2020-03-14 08:41 | PN_ITS ---
Patient Problems: Active and Suspected Problems (Last Updated 03/14/20 @ 01:[address] Boby Fuentes MD) Severe sepsis (Acute) Cystitis (Acute) Bradycardia (Acute) JERILYN (acute kidney injury) (Acute) Weight loss, intentional (Acute) - Physical Exam Vitals/I&O's: Vital Signs Temp Pulse Resp BP Pulse Ox 97.6 F L 51 L 21 H 122/55 H 98 03/14/20 08:00 03/14/20 08:00 03/14/20 08:00 03/14/20 08:00 03/14/20 08:00 Oxygen Delivery Method Room Air Weight: 214 lb 4.629 oz Body Mass Index (BMI) 41.9 Intake and Output for Last 24 Hours 03/12/20 03/13/20 03/14/20 23:59 23:59 23:59 Intake Total 3372.5 / 3372.5 Balance 3372.5 / 3372.5 Laboratory Results 03/13/20 22:20: WBC 22.3 H, RBC 4.02 L, Hgb 11.7 L, Hct 37.2, MCV 92.5, MCH 29.1, MCHC 31.5 L, RDW Std Deviation 46.5 H, RDW Coeff of Dwain 13.5, Plt Count 264, MPV 11.3, Immature Gran % (Auto) 0.600, Neut % (Auto) 77.7 H, Lymph % (Auto) 11.7 L, [place] % (Auto) 8.8, Eos % (Auto) 1.0, Baso % (Auto) 0.2, Absolute Neuts (auto) 17.4 H, Absolute Lymphs (auto) 2.62, Nucleated RBC % 0, Differential Comment SCANNED, Diff Path Review January03/13/20 22:20: Sodium 137, Potassium 4.1, Chloride 102, Carbon Dioxide 28.0, Anion Gap 7, BUN 29 H, Creatinine 2.75 H, Estim Creat Clear Calc 15.80, Est GFR (MDRD) Af Amer 22 L, Est GFR (MDRD) Non-Af 19 L, BUN/Creatinine Ratio 10.5, Glucose 121 H, Calcium 10.8 H, Total Bilirubin 1.80 H, AST 16, ALT 18, Alkaline Phosphatase 109, Troponin I < 0.015, Total Protein 8.0, Albumin 3.8, Globulin 4.2, Albumin/Globulin Ratio 0.9 03/13/20 22:20: Lactic Acid 1.0 03/13/20 23:35: Urine Color Yellow, Urine Clarity Sl. Cloudy, Urine pH 5.0, Ur Specific [place] 1.020, Urine Protein 30 H, Urine Glucose (UA) Normal, Urine Ketones Negative, Urine Occult Blood 150 H, Urine Nitrite Negative, Urine Bilirubin Negative, Urine Urobilinogen 1 H, Ur Leukocyte Esterase 500 H, Urine RBC 10-25 SEEN, Urine WBC 10-25 SEEN, Ur Squamous Epith Cells 5-10 SEEN, Urine Bacteria 2+, Urine Mucus 0 SEEN 03/13/20 23:35: Urine Creatinine 224.00 03/13/20 23:35: Ur Random Sodium 39 03/14/20 04:25: WBC 15.8 H, RBC 3.32 L, Hgb 9.8 L, Hct 31.1 L, MCV 93.7, MCH 29.5, MCHC 31.5 L, RDW Std Deviation 47.2 H, RDW Coeff of Dwain 13.8, Plt Count 199, MPV 11.1, Immature Gran % (Auto) 0.400, Neut % (Auto) 66.8, Lymph % (Auto) 21.9, [place] % (Auto) 8.1, Eos % (Auto) 2.4, Baso % (Auto) 0.4, Absolute Neuts (auto) 10.6 H, Absolute Lymphs (auto) 3.47, Nucleated RBC % 0 03/14/20 04:25: Sodium 139, Potassium 4.0, Chloride 107, Carbon Dioxide 26.0, Anion Gap 6, BUN 28 H, Creatinine 2.07 H, Estim Creat Clear Calc 19.98, Est GFR (MDRD) Af Amer 31 L, Est GFR (MDRD) Non-Af 26 L, BUN/Creatinine Ratio 13.5, Glucose 96, Calcium 9.7 Current Medications Acetaminophen (Tylenol) 650 mg PO Q6H PRN PRN PRN Reason: Pain Score 1-10/Temp > 100.7 F Dextrose (D50w Syringe) 0 gm IV X1 PRN; Protocol PRN Reason: Hypoglycemia Ferrous Sulfate (Ferrous Sulfate) 325 mg PO 1200,1700 MELISSA Glucagon () 1 mg IM .X1 PRN PRN Reason: Hypoglycemia Heparin Sodium (Porcine) (Heparin Na) 5,000 unit SC Q8 [facility] Last Admin: 03/14/20 05:34 Dose: 5,000 unit Documented by: Sodium Chloride () 1,000 mls @ 150 mls/hr IV .Q6H40M [facility] Last Admin: 03/14/20 07:52 Dose: 150 mls/hr Documented by: Piperacillin Sod/Tazobactam (Sod 3.375 gm/ Sodium Chloride) 50 mls @ 12.5 mls/hr IV Q12 [facility] Levothyroxine Sodium (Synthroid) 125 mcg PO DAILY@0600 [facility] Last Admin: 03/14/20 05:34 Dose: 125 mcg Documented by: Levothyroxine Sodium (Synthroid) 125 mcg PO Goldbreg@0600 [facility] Magnesium Hydroxide (Milk Of Magnesia) 30 ml PO DAILY PRN PRN PRN Reason: Constipation Meclizine HCl (Antivert) 25 mg PO 4X/DAY PRN PRN PRN Reason: Vertigo Melatonin (Melatonin) 3 mg PO QHS PRN PRN PRN Reason: INSOMNIA Ondansetron HCl (Zofran) 4 mg IV Q8H PRN PRN PRN Reason: NAUSEA/VOMITING Pantoprazole Sodium (Protonix) 40 mg PO DAILY [facility] Sodium Chloride () 10 - 40 ml IV UD PRN PRN Reason: SALINE FLUSH Tolterodine Tartrate (Detrol La) 2 mg PO DAILY [facility] Medical Necessity - Tobacco Use Smoking Status: Former smoker Assessment/Plan All Active Problems (Last Updated 03/14/20 @ 01:[address] Boby Fuentes MD) Severe sepsis (Acute) Cystitis (Acute) Bradycardia (Acute) JERILYN (acute kidney injury) (Acute) Weight loss, intentional (Acute)
--- NOTE | 2020-03-14 08:42 | PCM.PN.BLA ---
Progress Note This is a 64 years old female patient presented to the emergency room because of dizziness and lightheadedness, found to have acute cystitis and bradycardia as well as acute kidney injury. I doubt severe sepsis. Upon arrival to ED, patient was not febrile, not tachycardic, not dyspneic or tachypneic. She does have leukocytosis with evidence of UTI but her lactic acid was normal. Her mean arterial pressure has been always above 65 and it did improve with IV fluids. Although she does have evidence of endorgan damage which is the acute kidney injury, does not qualify for severe sepsis. Patient has been on Coreg for long time which can cause bradycardia and also, she lost almost 50 pounds over the last several months. She is on IV fluids. Kidney function is improving. EKG revealed sinus bradycardia, otherwise normal. Plan to continue IV antibiotics, IV fluids, keep holding Cozaar and Coreg for now. STROKE Vital Signs/Narrative: Vital Signs Temp Pulse Resp BP Pulse Ox 03/14/20 08:00 97.6 F L 51 L 21 H 122/55 H 98 03/14/20 07:00 52 L 21 H 96/59 L 96 03/14/20 06:59 48 L 03/14/20 06:00 47 L 16 88/55 L 100 03/14/20 05:00 52 L 29 H 97/65 99
[2020-03-14] MEDS: Pantoprazole Sodium 40 MG Tablet PO (10:02)
--- NOTE | 2020-03-14 10:39 | CASEMGMT ---
NICKOLAS DORSEY assessment: Face to Face with patient for initial transition planning/care coordination assessment. NICKOLAS DORSEY introduced self and role at [facility], pt voices understanding and consents to assessment at this time. Pt is sitting up in chair in no distress at this time. Pt is A/Ox4 at this time and answers all questions appropriately at this time. Care providers, pharmacy, and demographics verified at this time. Presentation: Pt arrives with dizziness. Hx of vertigo. On Meclizine at home Admitting dx: Severe sepsis PCP: Polly Specialists: nhung Montalvo crinologist for thyroid Preferred Pharmacy: [facility] Insurance: [employer] Prescription Benefit: [employer] Living Will/HPOA: Pt states no LW/HPOA but states would like AD info at this time. AD info provided at this time. LNOK: Chun Arroyo, brother Living Arrangements: Pt states lives alone in mobile home with 4-5steps in and states no concerns at home at this time. Pt states in independent with ADL's. Transportation: Pt states drives self and states no transportation concerns at this time. DME/HHC: Pt states has a walker at home but does not normally use. Pt states no need for any further DME at this time. Pt states no hx of HHC or SNF in the past. Pt states no concerns with going home at time of discharge. 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 Pt states does not smoke cigarettes and seldom drinks ETOH. Pt voices no further concerns/needs at this time. CM to follow for PT/OT evals and for any further discharge planning/needs. Advised pt to ask for CM if any further questions/concerns/needs arise, voices understanding. Pt Goal: Home Plan[place] NICKOLAS DORSEY
[2020-03-14] MEDS: Lactated Ringers 1,000 ML 999 ML IV (11:05)
--- NOTE | 2020-03-14 11:09 | CON.PCM_ITS ---
Problem List (1) JERILYN (acute kidney injury) Status: Acute Consultation - Renal 03/14/20 PCP/ Referring MD: Requesting physician: [] Primary care physician: Dr. Mg Matias DO Reason for Consultation:: JERILYN - History of Present Illness History of Present Illness: The patient is a 64 year old F who was admitted to the hospital yesterday with complaints of dizziness, hypotension. Renal consulted for acute renal failure on CKD stage III. Patient's primary care physician is based out [facility]. Reviewed records. She has known history of CKD stage III with baseline creatinine around 1.4. In December, she was taken off chlorthalidone due to hypercalcemia. Currently she is on carvedilol and losartan for hypertension. This admission she was found to have suspected UTI, hypotension. Feels better since getting admitted. No dizziness lying down. She has not gotten up to walk yet. No urinary complaints. Creatinine is better today. - Allergies Allergies: Allergies No Known Allergies Allergy (Verified 03/13/20 21:53) - Current Medications Current Medications: Current Medications Acetaminophen (Tylenol) 650 mg PO Q6H PRN PRN PRN Reason: Pain Score 1-10/Temp > 100.7 F Dextrose (D50w Syringe) 0 gm IV X1 PRN; Protocol PRN Reason: Hypoglycemia Ferrous Sulfate (Ferrous Sulfate) 325 mg PO 1200,1700 MELISSA Glucagon () 1 mg IM .X1 PRN PRN Reason: Hypoglycemia Heparin Sodium (Porcine) (Heparin Na) 5,000 unit SC Q8 [facility] Last Admin: 03/14/20 05:34 Dose: 5,000 unit Documented by: Sodium Chloride () 1,000 mls @ 150 mls/hr IV .Q6H40M [facility] Last Admin: 03/14/20 07:52 Dose: 150 mls/hr Documented by: Piperacillin Sod/Tazobactam (Sod 3.375 gm/ Sodium Chloride) 50 mls @ 12.5 mls/hr IV Q12 [facility] Last Admin: 03/14/20 10:01 Dose: 12.5 mls/hr Documented by: Lactated Ringer's () 1,000 mls @ 999 mls/hr IV .Q1H1M [facility] Stop: 03/14/20 11:15 Last Admin: 03/14/20 11:05 Dose: 999 mls/hr Documented by: Levothyroxine Sodium (Synthroid) 125 mcg PO DAILY@0600 [facility] Last Admin: 03/14/20 05:34 Dose: 125 mcg Documented by: Levothyroxine Sodium (Synthroid) 125 mcg PO Goldberg@0600 [facility] Magnesium Hydroxide (Milk Of Magnesia) 30 ml PO DAILY PRN PRN PRN Reason: Constipation Meclizine HCl (Antivert) 25 mg PO 4X/DAY PRN PRN PRN Reason: Vertigo Melatonin (Melatonin) 3 mg PO QHS PRN PRN PRN Reason: INSOMNIA Ondansetron HCl (Zofran) 4 mg IV Q8H PRN PRN PRN Reason: NAUSEA/VOMITING Pantoprazole Sodium (Protonix) 40 mg PO DAILY [facility] Last Admin: 03/14/20 10:02 Dose: 40 mg Documented by: Sodium Chloride () 10 - 40 ml IV UD PRN PRN Reason: SALINE FLUSH Tolterodine Tartrate (Detrol La) 2 mg PO DAILY [facility] Last Admin: 03/14/20 10:00 Dose: Not Given Documented by: - Past Medical History Past Medical History (Chronic Problems): Chronic Problems (Last Updated 03/14/20 @ 01:[address] Boby Fuentes MD) Hypothyroidism (Chronic) Chronic anemia (Chronic) Hypertension (Chronic) - Past Surgical History Surgical History: cholecystectomy, hysterectomy, - - Thyroidectomy - Social History Smoking Status: Former smoker Alcohol: None Drugs: None - Family History Maternal History Items: Cancer - Lung and pancreatic cancer. Paternal History Items: Cancer - Lung cancer Review of Systems Constitutional: Denies: Chills, Fever, Weight Change HEENT: Denies: Head Aches, Sinus Congestion, Sinus Drainage Cardiovascular: Denies: Chest Pain, Palpitations Respiratory: Denies: Cough, Shortness of breath at rest, Sputum production Gastrointestinal: Denies: Abdominal Pain, Nausea, Vomiting Genitourinary: Denies: Dysuria Musculoskeletal: Denies: Joint Pain, Joint Tenderness Skin: Denies: Rash, Wounds Neurological: Denies: Numbness, Tingling, Focal weakness Psychiatric: Denies: Anxiety, Depression, Homicidal Ideations, Suicidal Suzette ations Hematologic/ Lymphatic: Denies: Easy Bruising, Easy Bleeding Patient Problems: Active and Suspected Problems (Last Updated 03/14/20 @ 01:[address] Boby Fuentes MD) Cystitis (Acute) Bradycardia (Acute) JERILYN (acute kidney injury) (Acute) Weight loss, intentional (Acute) - Physical Exam Vitals/I&O's: Vital Signs Temp Pulse Resp BP Pulse Ox 97.5 F L 55 L 21 H 84/44 L 98 03/14/20 10:00 03/14/20 10:00 03/14/20 10:00 03/14/20 10:00 03/14/20 10:00 Oxygen Delivery Method Room Air Weight: 97.2 kg Body Mass Index (BMI) 41.9 Intake and Output for Last 24 Hours 03/12/20 03/13/20 03/14/20 23:59 23:59 23:59 Intake Total 3372.5 / 3372.5 Balance 3372.5 / 3372.5 General: Alert, Oriented x3, Cooperative HEENT: Atraumatic, PERRLA, EOMI, Normocephalic Neck: Supple, No JVD, Negative Carotid Bruits Lungs: Clear to auscultation, Normal air movement Cardiovascular: Regular rate, No murmurs Abdomen: Bowel Sounds Present, Soft, Non Tender Extremities: No edema, Capillary Refill Less than 3 Seconds Skin: No rashes, No breakdown Musculoskeletal: No Tenderness to Palpation of Joints or Extremities Neurological: Cranial nerves II-XII grossly intact Psych/Mental Status: Normal Affect, Appropriate Laboratory Results 03/13/20 22:20: WBC 22.3 H, RBC 4.02 L, Hgb 11.7 L, Hct 37.2, MCV 92.5, MCH 29.1, MCHC 31.5 L, RDW Std Deviation 46.5 H, RDW Coeff of Dwain 13.5, Plt Count 264, MPV 11.3, Immature Gran % (Auto) 0.600, Neut % (Auto) 77.7 H, Lymph % (Auto) 11.7 L, [place] % (Auto) 8.8, Eos % (Auto) 1.0, Baso % (Auto) 0.2, Absolute Neuts (auto) 17.4 H, Absolute Lymphs (auto) 2.62, Nucleated RBC % 0, Differential Comment SCANNED, Diff Path Review January03/13/20 22:20: Sodium 137, Potassium 4.1, Chloride 102, Carbon Dioxide 28.0, Anion Gap 7, BUN 29 H, Creatinine 2.75 H, Estim Creat Clear Calc 15.80, Est GFR (MDRD) Af Amer 22 L, Est GFR (MDRD) Non-Af 19 L, BUN/Creatinine Ratio 10.5, Glucose 121 H, Calcium 10.8 H, Total Bilirubin 1.80 H, AST 16, ALT 18, Alkaline Phosphatase 109, Troponin I < 0.015, Total Protein 8.0, Albumin 3.8, Globulin 4.2, Albumin/Globulin Ratio 0.9 03/13/20 22:20: Lactic Acid 1.0 03/13/20 23:35: Urine Color Yellow, Urine Clarity Sl. Cloudy, Urine pH 5.0, Ur Specific [place] 1.020, Urine Protein 30 H, Urine Glucose (UA) Normal, Urine Ketones Negative, Urine Occult Blood 150 H, Urine Nitrite Negative, Urine Bilirubin Negative, Urine Urobilinogen 1 H, Ur Leukocyte Esterase 500 H, Urine RBC 10-25 SEEN, Urine WBC 10-25 SEEN, Ur Squamous Epith Cells 5-10 SEEN, Urine Bacteria 2+, Urine Mucus 0 SEEN 03/13/20 23:35: Urine Creatinine 224.00 03/13/20 23:35: Ur Random Sodium 39 03/14/20 04:25: WBC 15.8 H, RBC 3.32 L, Hgb 9.8 L, Hct 31.1 L, MCV 93.7, MCH 29.5, MCHC 31.5 L, RDW Std Deviation 47.2 H, RDW Coeff of Dwain 13.8, Plt Count 199, MPV 11.1, Immature Gran % (Auto) 0.400, Neut % (Auto) 66.8, Lymph % (Auto) 21.9, Turner % (Auto) 8.1, Eos % (Auto) 2.4, Baso % (Auto) 0.4, Absolute Neuts (auto) 10.6 H, Absolute Lymphs (auto) 3.47, Nucleated RBC % 0 03/14/20 04:25: Sodium 139, Potassium 4.0, Chloride 107, Carbon Dioxide 26.0, Anion Gap 6, BUN 28 H, Creatinine 2.07 H, Estim Creat Clear Calc 19.98, Est GFR (MDRD) Af Amer 31 L, Est GFR (MDRD) Non-Af 26 L, BUN/Creatinine Ratio 13.5, Glucose 96, Calcium 9.7 Current Medications Acetaminophen (Tylenol) 650 mg PO Q6H PRN PRN PRN Reason: Pain Score 1-10/Temp > 100.7 F Dextrose (D50w Syringe) 0 gm IV X1 PRN; Protocol PRN Reason: Hypoglycemia Ferrous Sulfate (Ferrous Sulfate) 325 mg PO 1200,1700 [facility] Glucagon () 1 mg IM .X1 PRN PRN Reason: Hypoglycemia Heparin Sodium (Porcine) (Heparin Na) 5,000 unit SC Q8 [facility] Last Admin: 03/14/20 05:34 Dose: 5,000 unit Documented by: Sodium Chloride () 1,000 mls @ 150 mls/hr IV .Q6H40M [facility] Last Admin: 03/14/20 07:52 Dose: 150 mls/hr Documented by: Piperacillin Sod/Tazobactam (Sod 3.375 gm/ Sodium Chloride) 50 mls @ 12.5 mls/hr IV Q12 [facility] Last Admin: 03/14/20 10:01 Dose: 12.5 mls/hr Documented by: Lactated Ringer's () 1,000 mls @ 999 mls/hr IV .Q1H1M [facility] Stop: 03/14/20 11:15 Last Admin: 03/14/20 11:05 Dose: 999 mls/hr Documented by: Levothyroxine Sodium (Synthroid) 125 mcg PO DAILY@0600 [facility] Last Admin: 03/14/20 05:34 Dose: 125 mcg Documented by: Levothyroxine Sodium (Synthroid) 125 mcg PO Goldberg@0600 [facility] Magnesium Hydroxide (Milk Of Magnesia) 30 ml PO DAILY PRN PRN PRN Reason: Constipation Meclizine HCl (Antivert) 25 mg PO 4X/DAY PRN PRN PRN Reason: Vertigo Melatonin (Melatonin) 3 mg PO QHS PRN PRN PRN Reason: INSOMNIA Ondansetron HCl (Zofran) 4 mg IV Q8H PRN PRN PRN Reason: NAUSEA/VOMITING Pantoprazole Sodium (Protonix) 40 mg PO DAILY [facility] Last Admin: 03/14/20 10:02 Dose: 40 mg Documented by: Sodium Chloride () 10 - 40 ml IV UD PRN PRN Reason: SALINE FLUSH Tolterodine Tartrate (Detrol La) 2 mg PO DAILY [facility] Last Admin: 03/14/20 10:00 Dose: Not Given Documented by: Assessment/Plan All Active Problems (Last Updated 03/14/20 @ 01:[address] Boby Fuentes MD) Cystitis (Acute) Bradycardia (Acute) JERILYN (acute kidney injury) (Acute) Weight loss, intentional (Acute) 1. Acute renal failure 2. CKD stage III Baseline creatinine is around 1.4 as of December 2019. Most likely acute renal failure related to hypotension. Creatinine is better today. Continue IV fluids. 3. Hypertension. Reviewed records from primary care physician's office. As of December she was on chlorthalidone, carvedilol, losartan. She was taken off chlorthalidone in December due to hypercalcemia. Currently she has lost about 40 pounds of weight over the last few months intentionally. Usually there is a decline in blood pressure associated with weight loss. Most likely she would no t need to be on any of this blood pressure medications going forward. She also has leukocytosis, suspected UTI. Lactate levels are normal. Continue to hold all medications and continue IV fluids for now. 4. Hypercalcemia. As per records, she had partial thyroidectomy followed by a total thyroidectomy in 2004. She was maintained on high dose of Synthroid to keep TSH undetectable. Surprisingly in December of this year, she had a TSH of 40. Thyroid supplements were increased. The hypercalcemia was thought to be related to hypothyroidism. However her PTH levels were on the higher side betw een 1 -10 20. ? Primary hyperparathyroidism. Nuclear parathyroid scan was negative. Serum calcium levels are acceptable. I will check a TSH for now. Will call Dr. Teddy Montalvo from endocrinology once TSH values are available. Thank you for the consult
[2020-03-14 11:59] LABS: Thyroid Stim Hormone (TSH) 2.67 uIU/mL (0.358-3.74)
[2020-03-14] MEDS: Ferrous Sulfate 325 MG Tablet PO ×2 (12:10→16:39)
[2020-03-14 12:54] LABS: Pathologist Review Reviewed
--- NOTE | 2020-03-14 14:09 | CASEMGMT ---
Per RN CM patient wanted advance directives. SW met with patient and introduced self. She thanked SW for the documents. Trixie MARQUIS MSW
[2020-03-15] VITALS (20 sets, daily range): BP systolic 85–145; BP diastolic 50–90; PULSE 46–59; RESP 16–21; TEMP 36.3–36.8; O2SAT 94–100
[2020-03-15 03:30] LABS: Absolute Lymphocyte Count 2.83 X10^3/uL (0.83-4.51); Absolute Neutrophil Count 5.1 X10^3/uL (2.0-7.7); Basophil# 0.07 X10^3/uL; Basophil% 0.7 % (0-1); Eosinophil# 0.48 X10^3/uL; Eosinophils% 5.1 % (0-5); Hematocrit 31.5 % (37-47); Hemoglobin 9.7 g/dL (12.0-15.0); Lymphocyte # 2.83 X10^3/ul (4.0); Mean Corp Hgb Conc 30.8 g/dL (32-36); Mean Corpuscular Hgb 29.3 pg (27.0-32.0); Mean Corpuscular Volume 95.2 fL (81-99); Mean Platelet Vol. 11.4 fl (6.2-12.0); Monocyte# 0.88 X10^3/uL; Monocyte% 9.3 % (0-10); NRBC Flagged by Analyzer 0 % (0-5); Neutrophil # 5.13 X10^3/uL (2.7-7.7); Neutrophil % 54.5 % (47-70); Platelet Count 227 K/mm3 (150-450); RBC Distribution Width CV 13.8 % (11.6-14.6); Red Blood Count 3.31 M/mm3 (4.2-5.4); White Blood Count 9.4 K/mm3 (4.4-11.0)
[2020-03-15] MEDS: 0.9% Normal Saline 1,000 ML 150 ML IV (03:39)
[2020-03-15 03:42] LABS: Anion Gap 5 (5-15); BUN 19 mg/dL (7-18); BUN/Creat Ratio 13.2 RATIO (10-20); Calcium,Total 9.6 mg/dL (8.5-10.1); Chloride 113 mmol/L (98-107); Creatinine, Serum 1.44 mg/dL (0.55-1.02); EST Glomerular Filtration Rate 39 mL/min (>60); Est Glom Filt Rate - Afr Amer 47 mL/min (>60); Estimated Creatinine Clearance 28.72 ml/min; Glucose 97 mg/dL (74-106); Potassium 4.1 mmol/L (3.5-5.1); Sodium Level 143 mmol/L (136-145)
[2020-03-15] MEDS: Heparin Injection (Vial) 5,000 UNIT/ML VIAL 5000 UNIT SC ×3 (06:07→22:12)
[2020-03-15] MEDS: Levothyroxine 125 MCG Tablet PO (06:07)
[2020-03-15] MEDS: 0.9% Saline Lock 10 ML Syringe IV ×2 (06:08→10:37)
--- NOTE | 2020-03-15 06:45 | PN_ITS ---
Subjective: Patient did well overnight. No acute issues were reported. Patient states that she feels back to normal at this time. Patient was able to ambulate to the bathroom without difficulty. Patient is not reporting any orthostatic symptoms. General: Alert, Oriented x3, Cooperative, No apparent distress, Well developed, Well nourished, - - Obese. Speaking in full sentences. HEENT: Atraumatic, PERRLA, EOMI, Normocephalic, - - No scleral icterus or injection noted Oral: Moist Mucosa, No Gingival or Mucosal Lesions/ Ulcerations Neck: Supple, No JVD, No Nodes, Trachea Midline Lungs: Clear to auscultation, Normal air movement, No rhonchi, No wheeze, No rales Cardiovascular: Normal S1, Normal S2, No murmurs, Bradycardic, No rub noted, No Gallop Abdomen: Bowel Sounds Present, Soft, Non Tender, Non-Distended, Obese Extremities: No clubbing, No cyanosis, No edema, Capillary Refill Less than 3 Seconds Skin: No rashes, No breakdown Musculoskeletal: No Tenderness to Palpation of Joints or Extremities Lymphatic: No Cervical, Supraclavicular, or Inguinal Adenopathy Neurological: Cranial nerves II-XII grossly intact, Neuro grossly intact, Motor Exam 5/5 strength throughout Psych/Mental Status: Alert and oriented to time, place, person, mood and affect Vital Signs Temp Pulse Resp BP Pulse Ox 36.4 C L 53 L 19 H 122/67 H 98 03/15/20 04:00 03/15/20 04:00 03/15/20 04:00 03/15/20 04:00 03/15/20 04:00 Oxygen Delivery Method Room Air Weight: 100.1 kg Body Mass Index (BMI) 41.9 Intake and Output for Last 24 Hours 03/13/20 03/14/20 03/15/20 23:59 23:59 23:59 Intake Total 6967.5 / 6967.5 1050 / 1050 Output Total 1900 / 1900 Balance 5067.5 / 5067.5 1050 / 1050 Labs (Last 48 Hours) 03/13/20 03/13/20 03/13/20 22:20 22:20 22:20 WBC 22.3 H RBC 4.02 L Hgb 11.7 L Hct 37.2 MCV 92.5 MCH 29.1 MCHC 31.5 L RDW Std Deviation 46.5 H RDW Coeff of Dwain 13.5 Plt Count 264 MPV 11.3 Immature Gran % (Auto) 0.600 Neut % (Auto) 77.7 H Lymph % (Auto) 11.7 L [place] % (Auto) 8.8 Eos % (Auto) 1.0 Baso % (Auto) 0.2 Absolute Neuts (auto) 17.4 H Absolute Lymphs (auto) 2.62 Nucleated RBC % 0 Differential Comment SCANNED Diff Path Review Reviewed Sodium 137 Potassium 4.1 Chloride 102 Carbon Dioxide 28.0 Anion Gap 7 BUN 29 H Creatinine 2.75 H Estim Creat Clear Calc 15.80 Est GFR (MDRD) Af Amer 22 L Est GFR (MDRD) Non-Af 19 L BUN/Creatinine Ratio 10.5 Glucose 121 H Lactic Acid 1.0 Calcium 10.8 H Total Bilirubin 1.80 H AST 16 ALT 18 Alkaline Phosphatase 109 Troponin I < 0.015 Total Protein 8.0 Albumin 3.8 Globulin 4.2 Albumin/Globulin Ratio 0.9 TSH Urine Color Urine Clarity Urine pH Ur Specific [place] Urine Protein Urine Glucose (UA) Urine Ketones Urine Occult Blood Urine Nitrite Urine Bilirubin Urine Urobilinogen Ur Leukocyte Esterase Urine RBC Urine WBC Ur Squamous Epith Cells Urine Bacteria Urine Mucus Ur Random Sodium Urine Creatinine 03/13/20 03/13/20 03/13/20 23:35 23:35 23:35 WBC RBC Hgb Hct MCV MCH MCHC RDW Std Deviation RDW Coeff of Dwain Plt Count MPV Immature Gran % (Auto) Neut % (Auto) Lymph % (Auto) [place] % (Auto) Eos % (Auto) Baso % (Auto) Absolute Neuts (auto) Absolute Lymphs (auto) Nucleated RBC % Differential Comment Diff Path Review Sodium Potassium Chloride Carbon Dioxide Anion Gap BUN Creatinine Estim Creat Clear Calc Est GFR (MDRD) Af Amer Est GFR (MDRD) Non-Af BUN/Creatinine Ratio Glucose Lactic Acid Calcium Total Bilirubin AST ALT Alkaline Phosphatase Troponin I Total Protein Albumin Globulin Albumin/Globulin Ratio TSH Urine Color Yellow Urine Clarity Sl. Cloudy Urine pH 5.0 Ur Specific [place] 1.020 Urine Protein 30 H Urine Glucose (UA) Normal Urine Ketones Negative Urine Occult Blood 150 H Urine Nitrite Negative Urine Bilirubin Negative Urine Urobilinogen 1 H Ur Leukocyte Esterase 500 H Urine RBC 10-25 SEEN Urine WBC 10-25 SEEN Ur Squamous Epith Cells 5-10 SEEN Urine Bacteria 2+ Urine Mucus 0 SEEN Ur Random Sodium 39 Urine Creatinine 224.00 03/14/20 03/14/20 03/14/20 04:25 04:25 04:25 WBC 15.8 H RBC 3.32 L Hgb 9.8 L Hct 31.1 L MCV 93.7 MCH 29.5 MCHC 31.5 L RDW Std Deviation 47.2 H RDW Coeff of Dwain 13.8 Plt Count 199 MPV 11.1 Immature Gran % (Auto) 0.400 Neut % (Auto) 66.8 Lymph % (Auto) 21.9 [place] % (Auto) 8.1 Eos % (Auto) 2.4 Baso % (Auto) 0.4 Absolute Neuts (auto) 10.6 H Absolute Lymphs (auto) 3.47 Nucleated RBC % 0 Differential Comment Diff Path Review Sodium 139 Potassium 4.0 Chloride 107 Carbon Dioxide 26.0 Anion Gap 6 BUN 28 H Creatinine 2.07 H Estim Creat Clear Calc 19.98 Est GFR (MDRD) Af Amer 31 L Est GFR (MDRD) Non-Af 26 L BUN/Creatinine Ratio 13.5 Glucose 96 Lactic Acid Calcium 9.7 Total Bilirubin AST ALT Alkaline Phosphatase Troponin I Total Protein Albumin Globulin Albumin/Globulin Ratio TSH 2.67 Urine Color Urine Clarity Urine pH Ur Specific [place] Urine Protein Urine Glucose (UA) Urine Ketones Urine Occult Blood Urine Nitrite Urine Bilirubin Urine Urobilinogen Ur Leukocyte Esterase Urine RBC Urine WBC Ur Squamous Epith Cells Urine Bacteria Urine Mucus Ur Random Sodium Urine Creatinine 03/15/20 03/15/20 03:15 03:15 WBC 9.4 RBC 3.31 L Hgb 9.7 L Hct 31.5 L MCV 95.2 MCH 29.3 MCHC 30.8 L RDW Std Deviation 48.0 H RDW Coeff of Dwain 13.8 Plt Count 227 MPV 11.4 Immature Gran % (Auto) 0.400 Neut % (Auto) 54.5 Lymph % (Auto) 30.0 [place] % (Auto) 9.3 Eos % (Auto) 5.1 H Baso % (Auto) 0.7 Absolute Neuts (auto) 5.1 Absolute Lymphs (auto) 2.83 Nucleated RBC % 0 Differential Comment Diff Path Review Sodium 143 Potassium 4.1 Chloride 113 H Carbon Dioxide 25.0 Anion Gap 5 BUN 19 H Creatinine 1.44 H Estim Creat Clear Calc 28.72 Est GFR (MDRD) Af Amer 47 L Est GFR (MDRD) Non-Af 39 L BUN/Creatinine Ratio 13.2 Glucose 97 Lactic Acid Calcium 9.6 Total Bilirubin AST ALT Alkaline Phosphatase Troponin I Total Protein Albumin Globulin Albumin/Globulin Ratio TSH Urine Color Urine Clarity Urine pH Ur Specific [place] Urine Protein Urine Glucose (UA) Urine Ketones Urine Occult Blood Urine Nitrite Urine Bilirubin Urine Urobilinogen Ur Leukocyte Esterase Urine RBC Urine WBC Ur Squamous Epith Cells Urine Bacteria Urine Mucus Ur Random Sodium Urine Creatinine Clinical Impression(s) from Imaging Studies Renal Ultrasound 03/14/20 01:00 IMPRESSION: No suspicious sonographic findings Electronically Signed: Daniel Mann MD at 8:57 EDT , Service support , Medical Necessity - Tobacco Use Smoking Status: Former smoker Assessment/Plan All Active Problems (Last Updated 03/14/20 @ 01:[address] Boby Fuentes MD) Cystitis (Acute) Bradycardia (Acute) JERILYN (acute kidney injury) (Acute) Weight loss, intentional (Acute) RECOMMENDATIONS: 1. Continue empiric antibiotics pending culture results 2. Check orthostatics 3. Continue to hold home antihypertensive medications 4. Consider holding IV fluids 5. Potential discharge later today IMPRESSIONS: 1. Orthostatic hypotension with possible severe sepsis Unclear etiology at this time. Patient has been reporting some mild dysuria and does have leukocyte esterase noted on UA. Patient is on broad- spectrum antibiotics at this time with improvement in leukocytosis. Singh cul tures are currently pending, but patient has not been febrile since admission. Would continue antibiotics until cultures are resulted. Patient is also had a significant weight loss and may have accumulated beta-caprice leading to bradycardia overnight. Would continue to hold all antihypertensive medications. We will recheck orthostatic blood pressures. If doing well, potential discharge later today. 2. Acute kidney injury Significantly improved with hydration. Clinical suspicion for prerenal etiology. Patient did have some increase in creatinine, likely associated with diuretic therapy recently, but presentation at 2.75 is significantly higher. Patient is responding to fluid resuscitation. Continue to hold naproxen and losartan. Renal ultrasound was unremarkable and patient is making good urine at this time. We will continue to monitor. 3. Morbid obesity/recent weight loss/hypothyroidism/hypertension Complicates care, management, recovery and prognosis. Okay to continue with baseline Synthroid medication. Would hold antihypertensives for now. Inpatient E&M: 21153 Subs Hosp L2
--- NOTE | 2020-03-15 08:46 | PN_ITS ---
Patient Problems: Active and Suspected Problems (Last Updated 03/14/20 @ 01:[address] Boby Fuentes MD) Cystitis (Acute) Bradycardia (Acute) JERILYN (acute kidney injury) (Acute) Weight loss, intentional (Acute) Subjective: Chief complaint: Follow-up after admission for severe sepsis attributed to probable acute cystitis, acute kidney injury and symptomatic bradycardia. Patient seen and examined. No acute events overnight. This morning, she is feeling better. Yesterday, she was able to ambulate to be chair. She denied dizziness or lightheadedness. She denied chest pain or shortness of breath. She denied fever or chills. She denied abdominal pain, nausea or vomiting. She is afebrile, still bradycardic, heart rate has been in the mid 50s, blood pressure stabilized, pulse ox is maintained on room air. - Physical Exam Vitals/I&O's: Vital Signs Temp Pulse Resp BP Pulse Ox 97.4 F L 46 L 17 133/74 H 95 03/15/20 08:00 03/15/20 08:00 03/15/20 08:00 03/15/20 08:00 03/15/20 08:00 Oxygen Delivery Method Room Air Weight: 220 lb 10.923 oz Body Mass Index (BMI) 41.9 Intake and Output for Last 24 Hours 03/13/20 03/14/20 03/15/20 23:59 23:59 23:59 Intake Total 6967.5 / 6967.5 1300 / 1300 Output Total 1900 / 1900 550 / 550 Balance 5067.5 / 5067.5 750 / 750 General: Alert, Oriented x3, Cooperative, No apparent distress HEENT: Atraumatic, PERRLA, EOMI, Normocephalic Oral: Moist Mucosa, No Gingival or Mucosal Lesions/ Ulcerations Neck: Supple, No JVD, Negative Carotid Bruits, Trachea Midline, Thyroid Normal Size and Texture Lungs: Clear to auscultation, Normal air movement, No rhonchi, No wheeze, No rales Cardiovascular: Regular rate, Regular Rhythm, Normal S1, Normal S2, PMI Normal, Bradycardic Abdomen: Bowel Sounds Present, Soft, Non Tender, Non-Distended, No Hepato- splenomegaly, Obese Extremities: No clubbing, No cyanosis, No edema Skin: No rashes, No breakdown Lymphatic: No Cervical, Supraclavicular, or Inguinal Adenopathy Neurological: Cranial nerves II-XII grossly intact, Neuro grossly intact Psych/Mental Status: Normal Affect, Appropriate, Alert and oriented to time, place, person, mood and affect Laboratory Results 03/13/20 22:20: Diff Path Review Reviewed 03/14/20 04:25: TSH 2.67 03/15/20 03:15: WBC 9.4, RBC 3.31 L, Hgb 9.7 L, Hct 31.5 L, MCV 95.2, MCH 29.3, MCHC 30.8 L, RDW Std Deviation 48.0 H, RDW Coeff of Dwain 13.8, Plt Count 227, MPV 11.4, Immature Gran % (Auto) 0.400, Neut % (Auto) 54.5, Lymph % (Auto) 30.0, [place] % (Auto) 9.3, Eos % (Auto) 5.1 H, Baso % (Auto) 0.7, Absolute Neuts (auto) 5.1, Absolute Lymphs (auto) 2.83, Nucleated RBC % 0 03/15/20 03:15: Sodium 143, Potassium 4.1, Chloride 113 H, Carbon Dioxide 25.0, Anion Gap 5, BUN 19 H, Creatinine 1.44 H, Estim Creat Clear Calc 28.72, Est GFR (MDRD) Af Amer 47 L, Est GFR (MDRD) Non-Af 39 L, BUN/Creatinine Ratio 13.2, Glucose 97, Calcium 9.6 Clinical Impression(s) from Imaging Studies Chest X-Ray 03/13/20 23:00 IMPRESSION: No acute cardiopulmonary disease. Large hiatal hernia. Electronically Signed: Lorenzo Robledo MD at 23:16 EDT , Service support , Renal Ultrasound 03/14/20 01:00 IMPRESSION: No suspicious sonographic findings Electronically Signed: Daniel Mann MD at 8:57 EDT , Service support , Current Medications Acetaminophen (Tylenol) 650 mg PO Q6H PRN PRN PRN Reason: Pain Score 1-10/Temp > 100.7 F Dextrose (D50w Syringe) 0 gm IV X1 PRN; Protocol PRN Reason: Hypoglycemia Ferrous Sulfate (Ferrous Sulfate) 325 mg PO 1200,1700 [facility] Last Admin: 03/14/20 16:39 Dose: 325 mg Documented by: Glucagon () 1 mg IM .X1 PRN PRN Reason: Hypoglycemia Heparin Sodium (Porcine) (Heparin Na) 5,000 unit SC Q8 [facility] Last Admin: 03/15/20 06:07 Dose: 5,000 unit Documented by: Sodium Chloride () 1,000 mls @ 100 mls/hr IV .Q10H [facility] Last Admin: 03/15/20 03:39 Dose: 150 mls/hr Documented by: Piperacillin Sod/Tazobactam (Sod 3.375 gm/ Sodium Chloride) 50 mls @ 12.5 mls/hr IV Q12 [facility] Last Infusion: 03/15/20 01:00 Dose: Infused Documented by: Levothyroxine Sodium (Synthroid) 125 mcg PO DAILY@0600 [facility] Last Admin: 03/15/20 06:07 Dose: 125 mcg Documented by: Levothyroxine Sodium (Synthroid) 125 mcg PO Goldberg@0600 [facility] Magnesium Hydroxide (Milk Of Magnesia) 30 ml PO DAILY PRN PRN PRN Reason: Constipation Meclizine HCl (Antivert) 25 mg PO 4X/DAY PRN PRN PRN Reason: Vertigo Melatonin (Melatonin) 3 mg PO QHS PRN PRN PRN Reason: INSOMNIA Ondansetron HCl (Zofran) 4 mg IV Q8H PRN PRN PRN Reason: NAUSEA/VOMITING Pantoprazole Sodium (Protonix) 40 mg PO DAILY [facility] Last Admin: 03/14/20 10:02 Dose: 40 mg Documented by: Sodium Chloride () 10 - 40 ml IV UD PRN PRN Reason: SALINE FLUSH Last Admin: 03/15/20 06:08 Dose: 10 ml Documented by: Tolterodine Tartrate (Detrol La) 2 mg PO DAILY [facility] Last Admin: 03/14/20 10:00 Dose: Not Given Documented by: Medical Necessity - Tobacco Use Smoking Status: Former smoker Assessment/Plan All Active Problems (Last Updated 03/14/20 @ 01:[address] Boby Fuentes MD) Cystitis (Acute) Bradycardia (Acute) JERILYN (acute kidney injury) (Acute) Weight loss, intentional (Acute) This is a 64 years old female patient presented to the emergency room because of dizziness and lightheadedness, found to have severe sepsis attributed to acute cystitis and also found to have symptomatic bradycardia and acute kidney injury. #1 severe sepsis/ acute cystitis: She is on IV Zosyn. She has been afebrile, leukocytosis resolved. Lactic acid was normal. Blood and urine cultures are p ending. Chest x-ray showed no acute findings. Plan: Continue same treatment, awaiting culture results, transfer to PCU. #2 acute kidney injury: Secondary to severe sepsis and dehydration. Baseline kidney function is normal. She has been on IV fluids, kidney function is improving. Admission creatinine was 2.75, came down to 1.44 today, improving. Kidney ultrasound revealed normal kidneys, no obstruction, no hydronephrosis. Plan to decrease fluids to 100 cc/h, repeat BMP tomorrow morning. #3 symptomatic bradycardia: Could be due to Coreg versus excessive intentional weight loss. Patient lost about 50 pounds over the last several months. Heart rate has been in the 50s. EKG revealed sinus bradycardia, no evidence of heart block. Today, she has been asymptomatic, blood pressure improved. Plan to monitor, keep holding Coreg for now. #4 chronic anemia: Baseline hemoglobin has been around 11 g/dL. Today's hemoglobin came down to 9.7 likely because of hemodilution. No evidence of active bleeding. Plan to monitor, continue iron supplement. #5 hypertension: Blood pressure improved. Plan to keep holding both Coreg and Cozaar, repeat orthostatic vitals tomorrow morning. #6 hypothyroidism: Continue levothyroxine. #7 GERD: Continue Protonix. #8 DVT prophylaxis: Subcu heparin. This note was generated with [employer] dictation software. It may contain incorrect words, spelling, and punctuation that were not noted in checking the note before signing. Inpatient E&M: 39454 Subs Hosp L2
--- NOTE | 2020-03-15 09:34 | NURSING ---
Arrives from ICU.
[2020-03-15] MEDS: Tolterodine Tartrate 2 MG CAP.SA PO (10:33)
[2020-03-15] MEDS: Pantoprazole Sodium 40 MG Tablet PO (10:33)
[2020-03-15] MEDS: 0.9% Normal Saline 1,000 ML 100 ML IV ×2 (10:41→20:43)
--- NOTE | 2020-03-15 10:59 | PCM.PN.REN ---
Patient Problems: Active and Suspected Problems (Last Updated 03/14/20 @ 01:[address] Boby Fuentes MD) Cystitis (Acute) Bradycardia (Acute) JERILYN (acute kidney injury) (Acute) Weight loss, intentional (Acute) Subjective: no new complaints - Physical Exam Vitals/I&O's: Vital Signs Temp Pulse Resp BP Pulse Ox 98.1 F 55 L 16 137/59 H 96 03/15/20 10:00 03/15/20 10:00 03/15/20 10:00 03/15/20 10:00 03/15/20 10:00 Oxygen Delivery Method Room Air Weight: 100.1 kg Body Mass Index (BMI) 41.9 Intake and Output for Last 24 Hours 03/13/20 03/14/20 03/15/20 23:59 23:59 23:59 Intake Total 6967.5 / 6967.5 2300.0 / 2300.0 Output Total 1900 / 1900 550 / 550 Balance 5067.5 / 5067.5 1750.0 / 1750.0 General: Alert, Oriented x3, Cooperative HEENT: Atraumatic, PERRLA, EOMI, Normocephalic Neck: Supple, No JVD, Negative Carotid Bruits Lungs: Clear to auscultation, Normal air movement Cardiovascular: Regular rate, No murmurs Abdomen: Bowel Sounds Present, Soft, Non Tender Extremities: No edema, Capillary Refill Less than 3 Seconds Skin: No rashes, No breakdown Musculoskeletal: No Tenderness to Palpation of Joints or Extremities Neurological: Cranial nerves II-XII grossly intact Psych/Mental Status: Normal Affect, Appropriate Laboratory Results 03/13/20 22:20: Diff Path Review Reviewed 03/14/20 04:25: TSH 2.67 03/15/20 03:15: WBC 9.4, RBC 3.31 L, Hgb 9.7 L, Hct 31.5 L, MCV 95.2, MCH 29.3, MCHC 30.8 L, RDW Std Deviation 48.0 H, RDW Coeff of Dwain 13.8, Plt Count 227, MPV 11.4, Immature Gran % (Auto) 0.400, Neut % (Auto) 54.5, Lymph % (Auto) 30.0, [place] % (Auto) 9.3, Eos % (Auto) 5.1 H, Baso % (Auto) 0.7, Absolute Neuts (auto) 5.1, Absolute Lymphs (auto) 2.83, Nucleated RBC % 0 03/15/20 03:15: Sodium 143, Potassium 4.1, Chloride 113 H, Carbon Dioxide 25.0, Anion Gap 5, BUN 19 H, Creatinine 1.44 H, Estim Creat Clear Calc 28.72, Est GFR (MDRD) Af Amer 47 L, Est GFR (MDRD) Non-Af 39 L, BUN/Creatinine Ratio 13.2, Glucose 97, Calcium 9.6 Current Medications Acetaminophen (Tylenol) 650 mg PO Q6H PRN PRN PRN Reason: Pain Score 1-10/Temp > 100.7 F Dextrose (D50w Syringe) 0 gm IV X1 PRN; Protocol PRN Reason: Hypoglycemia Ferrous Sulfate (Ferrous Sulfate) 325 mg PO 1200,1700 [facility] Last Admin: 03/14/20 16:39 Dose: 325 mg Documented by: Glucagon () 1 mg IM .X1 PRN PRN Reason: Hypoglycemia Heparin Sodium (Porcine) (Heparin Na) 5,000 unit SC Q8 [facility] Last Admin: 03/15/20 06:07 Dose: 5,000 unit Documented by: Sodium Chloride () 1,000 mls @ 100 mls/hr IV .Q10H [facility] Last Admin: 03/15/20 10:41 Dose: 100 mls/hr Documented by: Piperacillin Sod/Tazobactam (Sod 3.375 gm/ Sodium Chloride) 50 mls @ 12.5 mls/hr IV Q12 [facility] Last Admin: 03/15/20 10:35 Dose: 12.5 mls/hr Documented by: Levothyroxine Sodium (Synthroid) 125 mcg PO DAILY@0600 [facility] Last Admin: 03/15/20 06:07 Dose: 125 mcg Documented by: Levothyroxine Sodium (Synthroid) 125 mcg PO Goldberg@0600 [facility] Magnesium Hydroxide (Milk Of Magnesia) 30 ml PO DAILY PRN PRN PRN Reason: Constipation Meclizine HCl (Antivert) 25 mg PO 4X/DAY PRN PRN PRN Reason: Vertigo Melatonin (Melatonin) 3 mg PO QHS PRN PRN PRN Reason: INSOMNIA Ondansetron HCl (Zofran) 4 mg IV Q8H PRN PRN PRN Reason: NAUSEA/VOMITING Pantoprazole Sodium (Protonix) 40 mg PO DAILY [facility] Last Admin: 03/15/20 10:33 Dose: 40 mg Documented by: Sodium Chloride () 10 - 40 ml IV UD PRN PRN Reason: SALINE FLUSH Last Admin: 03/15/20 10:37 Dose: 10 ml Documented by: Tolterodine Tartrate (Detrol La) 2 mg PO DAILY [facility] Last Admin: 03/15/20 10:33 Dose: 2 mg Documented by: Medical Necessity - Tobacco Use Smoking Status: Former smoker Assessment/Plan All Active Problems (Last Updated 03/14/20 @ 01:[address] Boby Fuentes MD) Cystitis (Acute) Bradycardia (Acute) JERILYN (acute kidney injury) (Acute) Weight loss, intentional (Acute) 1. Acute renal failure 2. CKD stage III Baseline creatinine is around 1.4 as of December 2019. Most likely acute renal failure related to hypotension. Creatinine is better today. Continue IV fluids. 3. Hypertension. Reviewed records from primary care physician's office. As of December she was on chlorthalidone, carvedilol, losartan. She was taken off chlorthalidone in December due to hypercalcemia. Currently she has lost about 40 pounds of weight over the last few months intentionally. Usually there is a decline in blood pressure associated with weight loss. Most likely she would not need to be on any of this blood pressure medications going forward. She also has leukocytosis, suspected UTI. Lactate levels are normal. Continue to hold all medications for now. 4. Hypercalcemia. As per records, she had partial thyroidectomy followed by a total thyroidectomy in 2004. She was maintained on high dose of Synthroid to keep TSH undetectable. Surprisingly in December of this year, she had a TSH of 40. Thyroid supplements were increased. The hypercalcemia was thought to be related to hypothyroidism. However her PTH levels were on the higher side between 10 10- 30. ? Primary hyperparathyroidism. Nuclear parathyroid scan was negative. Serum calcium levels are acceptable. TSH is better than december levels. she has an appt in a week with Dr Teddy Montalvo. she will follow up ok to dc tomorrow if cr remains stable would stop all BP meds for now
[2020-03-15] MEDS: Ferrous Sulfate 325 MG Tablet PO ×2 (14:08→18:06)
[2020-03-15] MEDS: Acetaminophen 325 MG Tablet 650 MG PO (20:42)
[2020-03-16 03:20] VITALS: BP 135/60; PULSE 47; RESP 15; TEMP 36.5; O2SAT 97
[2020-03-16 04:06] VITALS: PULSE 43
[2020-03-16] MEDS: 0.9% Saline Lock 10 ML Syringe IV (05:25)
[2020-03-16] MEDS: Levothyroxine 125 MCG Tablet PO (05:25)
[2020-03-16] MEDS: Heparin Injection (Vial) 5,000 UNIT/ML VIAL 5000 UNIT SC (05:26)
[2020-03-16 05:29] VITALS: BP 151/75; BP 158/71; BP 160/74; PULSE 46; PULSE 49; PULSE 51
[2020-03-16 06:37] LABS: Hematocrit 31.8 % (37-47); Hemoglobin 9.7 g/dL (12.0-15.0)
[2020-03-16] MEDS: 0.9% Normal Saline 1,000 ML 100 ML IV (06:51)
[2020-03-16 06:52] VITALS: PULSE 54
[2020-03-16 07:01] LABS: Anion Gap 6 (5-15); BUN 14 mg/dL (7-18); Calcium,Total 10.2 mg/dL (8.5-10.1); Chloride 110 mmol/L (98-107); Creatinine, Serum 1.17 mg/dL (0.55-1.02); EST Glomerular Filtration Rate 50 mL/min (>60); Est Glom Filt Rate - Afr Amer 60 mL/min (>60); Estimated Creatinine Clearance 35.35 ml/min; Glucose 83 mg/dL (74-106); Potassium 3.7 mmol/L (3.5-5.1); Sodium Level 141 mmol/L (136-145)
[2020-03-16 07:25] VITALS: O2SAT 95
--- NOTE | 2020-03-16 08:13 | DCINST_ITS ---
- Discharge Diagnoses Current Active Problems: Current Active and Chronic Problems (Last Updated 03/14/20 @ 01:[address] Boby Fuentes MD) Hypothyroidism (Chronic) Chronic anemia (Chronic) Hypertension (Chronic) Cystitis (Acute) Bradycardia (Acute) JERILYN (acute kidney injury) (Acute) Weight loss, intentional (Acute) You will use the following diet at home:: Cardiac Your food should be the consistency of: Regular Discharge Activity: Return to Normal Activity Return to work on:: 03/21/20 Weight Bearing Status: Weight bearing as tolerated Call your doctor if you observe: Fever of 101 or Higher, Shortness of breath, Dizziness, Fainting spells, Chest pain, Increased palpitations (irregular heartbeat), Uncontrolled pain Additional Instructions: Follow-up with your compliance project manager as scheduled. Allergies/Adverse Reactions: Allergies No Known Allergies Allergy (Verified 03/13/20 21:53) Medications to take at Discharge Levothyroxine Sodium [Synthroid] 125 mcg PO DAILY 02/23/14 Meclizine HCl [Antivert] 25 mg PO 4X/DAY PRN PRN #40 tablet 02/23/14 Ferrous Sulfate [Iron] 325 mg PO BID 03/04/17 Losartan Potassium [Cozaar] 100 mg PO DAILY 03/04/17 Pantoprazole Sodium [Protonix] 40 mg PO DAILY 10/03/18 Solifenacin Succinate [Vesicare] 5 mg PO DAILY 10/03/18 Ciprofloxacin [Cipro] 500 mg PO BID #8 tab 03/16/20 The following prescriptions were given: Ciprofloxacin [Cipro] 500 mg PO BID #8 tab Transmission Status: Pending to [facility]/pharmacy #[id number] Primary Care Physician: Mg Matias DO [Primary Care Provider] - Please follow up with your Primary Care Physician in: 1 week. Test Results: Test results from this visit will be discussed in further detail at your follow- up appointment, if applicable.
[2020-03-16 08:47] VITALS: BP 175/77; PULSE 50; RESP 18; TEMP 36.5; O2SAT 97
[2020-03-16] MEDS: Ferrous Sulfate 325 MG Tablet PO (08:48)
[2020-03-16] MEDS: Tolterodine Tartrate 2 MG CAP.SA PO (08:48)
[2020-03-16] MEDS: Pantoprazole Sodium 40 MG Tablet PO (08:48)
[2020-03-16] MEDS: Ciprofloxacin 500 MG Tablet PO (08:48)
--- NOTE | 2020-03-16 09:36 | PHA.DC.MC ---
Pharmacy Service has performed discharge medication reconciliation and counseling for this patient. 1. CIPROFLOXACIN 500MG PO BID X 4 DAYS The patient's discharge medication list was reviewed for discrepancies and discrepancies were resolved. Home Medications Levothyroxine Sodium [Synthroid] 125 mcg PO DAILY 02/23/14 Meclizine HCl [Antivert] 25 mg PO 4X/DAY PRN PRN #40 tablet 02/23/14 Ferrous Sulfate [Iron] 325 mg PO BID 03/04/17 Losartan Potassium [Cozaar] 100 mg PO DAILY 03/04/17 Pantoprazole Sodium [Protonix] 40 mg PO DAILY 10/03/18 Solifenacin Succinate [Vesicare] 5 mg PO DAILY 10/03/18 Ciprofloxacin [Cipro] 500 mg PO BID #8 tab 03/16/20 The patient was counseled on the following discharge medications and changes in medications for homegoing were reviewed. The Reason for Use, instructions for use, and potential side effects were reviewed for all new medications. The patient's questions regarding all of their medications were answered. The patient was able to verbally demonstrate an understanding of their discharge medications.
--- NOTE | 2020-03-16 10:00 | PN_ITS ---
Subjective: Patient transferred out of the intensive care unit. Patient has remained hemodynamically stable on room air. Patient continues to have bradycardia, but blood pressures have been higher. Orthostatic blood pressures were negative overnight. Patient has been on room air. General: Alert, Oriented x3, Cooperative, No apparent distress, Well developed, Well nourished, - - Speaking in full sentences. Obese. HEENT: Atraumatic, PERRLA, EOMI, Normocephalic, - - No scleral icterus or injection noted Oral: Moist Mucosa, No Gingival or Mucosal Lesions/ Ulcerations Neck: Supple, No JVD, No Nodes, Trachea Midline Lungs: Clear to auscultation, Normal air movement, No rhonchi, No wheeze, No rales Cardiovascular: Regular Rhythm, Normal S1, Normal S2, No murmurs, Bradycardic, No rub noted, No Gallop Abdomen: Bowel Sounds Present, Soft, Non Tender, Non-Distended, Obese Extremities: No clubbing, No cyanosis, No edema, Capillary Refill Less than 3 Se conds Skin: No rashes, No breakdown Musculoskeletal: No Tenderness to Palpation of Joints or Extremities Lymphatic: No Cervical, Supraclavicular, or Inguinal Adenopathy Neurological: Cranial nerves II-XII grossly intact, Neuro grossly intact, Motor Exam 5/5 strength throughout Psych/Mental Status: Alert and oriented to time, place, person, mood and affect Vital Signs Temp Pulse Resp BP Pulse Ox 36.5 C L 50 L 18 175/77 H 97 03/16/20 08:47 03/16/20 08:47 03/16/20 08:47 03/16/20 08:47 03/16/20 08:47 Oxygen Delivery Method Room Air Weight: 100 kg Body Mass Index (BMI) 41.9 Orthostatic Vital Signs Start: 03/15/20 20:37 Freq: 0600 Status: Active Protocol: Activity Type Activity Date Activity User E-Sign Co-Sign Detail Recorded Client Recorded Date Recorded By Document 03/16/20 05:29 [facility] [id number] 03/16/20 05:35 [facility] 03/16/20 05:29 Orthostatic Vitals Standing -Blood Pressure (90/60-120/80) 160/74 H -Extremity Use Right Arm -Pulse Rate (60-100) 51 L Sitting -Blood Pressure (90/60-120/80) 158/71 H -Extremity Use Right Arm -Pulse Rate (60-100) 49 L Lying -Blood Pressure (90/60-120/80) 151/75 H -Extremity Use Right Arm -Pulse Rate (60-100) 46 L Intake and Output for Last 24 Hours 03/14/20 03/15/20 03/16/20 23:59 23:59 23:59 Intake Total 6967.5 / 6967.5 4900.0 / 4900.0 1600 / 1600 Output Total 1900 / 1900 550 / 550 Balance 5067.5 / 5067.5 4350.0 / 4350.0 1600 / 1600 Labs (Last 48 Hours) 03/13/20 03/14/20 03/15/20 22:20 04:25 03:15 WBC 9.4 RBC 3.31 L Hgb 9.7 L Hct 31.5 L MCV 95.2 MCH 29.3 MCHC 30.8 L RDW Std Deviation 48.0 H RDW Coeff of Dwain 13.8 Plt Count 227 MPV 11.4 Immature Gran % (Auto) 0.400 Neut % (Auto) 54.5 Lymph % (Auto) 30.0 [place] % (Auto) 9.3 Eos % (Auto) 5.1 H Baso % (Auto) 0.7 Absolute Neuts (auto) 5.1 Absolute Lymphs (auto) 2.83 Nucleated RBC % 0 Diff Path Review Reviewed Sodium Potassium Chloride Carbon Dioxide Anion Gap BUN Creatinine Estim Creat Clear Calc Est GFR (MDRD) Af Amer Est GFR (MDRD) Non-Af BUN/Creatinine Ratio Glucose Calcium TSH 2.67 03/15/20 03/16/20 03/16/20 03:15 05:40 05:40 WBC RBC Hgb 9.7 L Hct 31.8 L MCV MCH MCHC RDW Std Deviation RDW Coeff of Dwain Plt Count MPV Immature Gran % (Auto) Neut % (Auto) Lymph % (Auto) [place] % (Auto) Eos % (Auto) Baso % (Auto) Absolute Neuts (auto) Absolute Lymphs (auto) Nucleated RBC % Diff Path Review Sodium 143 141 Potassium 4.1 3.7 Chloride 113 H 110 H Carbon Dioxide 25.0 25.0 Anion Gap 5 6 BUN 19 H 14 Creatinine 1.44 H 1.17 H Estim Creat Clear Calc 28.72 35.35 Est GFR (MDRD) Af Amer 47 L 60 Est GFR (MDRD) Non-Af 39 L 50 L BUN/Creatinine Ratio 13.2 12.0 Glucose 97 83 Calcium 9.6 10.2 H TSH Microbiology 03/13/20 23:35 Urine, Clean Catch Urine Culture - Final Mixed Gram Pos & Gram Neg Org Medical Necessity - Tobacco Use Smoking Status: Former smoker Assessment/Plan All Active Problems (Last Updated 03/14/20 @ 01:[address] Boby Fuentes MD) Cystitis (Acute) Bradycardia (Acute) JERILYN (acute kidney injury) (Acute) Weight loss, intentional (Acute) RECOMMENDATIONS: 1. Defer continuation of antibiotics to hospitalist. Cultures have been negative 2. Reinitiate antihypertensives in a stepwise fashion 3. No need for outpatient pulmonary/critical care follow-up IMPRESSIONS: 1. Orthostatic hypotension with possible severe sepsis Unclear etiology at this time. Patient has been reporting some mild dysuria and does have leukocyte esterase noted on UA. Patient is on broad- spectrum antibiotics at this time with normalization in leukocytosis. Singh cultures are currently pending, but patient has not been febrile since admission . Defer to hospitalist on antibiotics. Patient is also had a significant weight loss and may have accumulated beta-caprice leading to bradycardia overnight. Okay to reinitiate antihypertensives in a stepwise fashion. Orthostatic blood pressures were negative overnight. 2. Acute kidney injury Significantly improved with hydration. Clinical suspicion for prerenal etiology. Patient did have some increase in creatinine, likely associated with diuretic therapy recently, but presentation at 2.75 is significantly higher. Patient is responding to fluid resuscitation. Renal ultrasound was unremarkable and patient is making good urine at this time. We will continue to monitor. 3. Morbid obesity/recent weight loss/hypothyroidism/hypertension Complicates care, management, recovery and prognosis. Okay to continue with baseline Synthroid medication. Inpatient E&M: 60893 Subs Hosp L2
--- NOTE | 2020-03-16 10:19 | DS.PCM_ITS ---
Discharge Date and Diagnosis Date of Admission: 03/14/20 Date of Discharge: 03/16/20 - Primary Discharge Diagnosis Acute Problems: #1 severe sepsis/acute cystitis. #2 acute kidney injury. #3 symptomatic bradycardia, attributed to Coreg and excessive intentional weight loss. - Secondary Discharge Diagnosis Chronic Problems: Chronic Problems (Last Updated 03/14/20 @ 01:[address] Boby Fuentes MD) Hypothyroidism (Chronic) Chronic anemia (Chronic) Hypertension (Chronic) Hospital Course and Treatment Imaging Results: Clinical Impression(s) from Imaging Studies Chest X-Ray 03/13/20 23:00 IMPRESSION: No acute cardiopulmonary disease. Large hiatal hernia. Electronically Signed: Lorenzo Robledo MD at 23:16 EDT , Service support , Renal Ultrasound 03/14/20 01:00 IMPRESSION: No suspicious sonographic findings Electronically Signed: Daniel Mann MD at 8:57 EDT , Service support , Dr. Hernandez, critical care. Dr. Alonzo, nephrology. Operations: None Procedures: None Summary of Care Provided: Patient seen and examined on the day of discharge and appeared to be stable to be discharged home. She denied any complaints. She still bradycardia in the mid 50s but she is asymptomatic. Her other vital signs are stable. The patient is a 64 year old F presented to the emergency room because of dizziness and lightheadedness, found to have severe sepsis secondary to acute cystitis, symptomatic bradycardia attributed to Coreg and excessive unintentional weight loss and also found to have acute kidney injury. Urinalysis revealed cloudy urine, 500 leukocyte esterase, there was 10-25 WBCs and 2+ bacteria. She did have significant leukocytosis. She was treated with IV Zosyn and IV fluids. She was found to have acute kidney injury with admission creatinine of 2.75 mg/dL. Lactic acid was normal. Chest x-ray showed no acute findings. Her heart rate remained in the mid 50s and sometimes goes out to high 40s on admission. EKG reviewed sinus bradycardia without evidence of other cardiac arrhythmias or heart block. Coreg was discontinued. Patient reported that she lost almost 50 pounds in the last several months inten tionally. Initially, she was symptomatic, dizzy and lightheaded and after treatment, her heart rate remained in the 50s but she has no more symptoms. Blood pressure improved. Urine culture showed mixed contaminant. Blood culture showed no growth up to the time of discharge. Patient discharged home in a stable medical condition, discharged on ciprofloxacin 500 mg p.o. 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 - Physical Exam Vitals/I&O's: Vital Signs Temp Pulse Resp BP Pulse Ox 97.7 F L 50 L 18 175/77 H 97 03/16/20 08:47 03/16/20 08:47 03/16/20 08:47 03/16/20 08:47 03/16/20 08:47 Oxygen Delivery Method Room Air Weight: 220 lb 7.396 oz Body Mass Index (BMI) 41.9 Orthostatic Vital Signs Start: 03/15/20 20:37 Freq: 0600 Status: Active Protocol: Activity Type Activity Date Activity User E-Sign Co-Sign Detail Recorded Client Recorded Date Recorded By Document 03/16/20 05:29 [facility] [id number] 03/16/20 05:35 [facility] 03/16/20 05:29 Orthostatic Vitals Standing -Blood Pressure (90/60-120/80) 160/74 H -Extremity Use Right Arm -Pulse Rate (60-100) 51 L Sitting -Blood Pressure (90/60-120/80) 158/71 H -Extremity Use Right Arm -Pulse Rate (60-100) 49 L Lying -Blood Pressure (90/60-120/80) 151/75 H -Extremity Use Right Arm -Pulse Rate (60-100) 46 L Intake and Output for Last 24 Hours 03/14/20 03/15/20 03/16/20 23:59 23:59 23:59 Intake Total 6967.5 / 6967.5 4900.0 / 4900.0 1600 / 1600 Output Total 1900 / 1900 550 / 550 Balance 5067.5 / 5067.5 4350.0 / 4350.0 1600 / 1600 General: Alert, Oriented x3, Cooperative, No apparent distress HEENT: Atraumatic, PERRLA, EOMI, Normocephalic Oral: Moist Mucosa, No Gingival or Mucosal Lesions/ Ulcerations Neck: Supple, No JVD, Negative Carotid Bruits, Trachea Midline, Thyroid Normal Size and Texture Lungs: Clear to auscultation, Normal air movement, No rhonchi, No wheeze, No rales Cardiovascular: Regular rate, Regular Rhythm, Normal S1, Normal S2, PMI Normal, Bradycardic Abdomen: Bowel Sounds Present, Soft, Non Tender, Non-Distended, No Hepato- splenomegaly, Obese Extremities: No clubbing, No cyanosis, No edema Skin: No rashes, No breakdown Lymphatic: No Cervical, Supraclavicular, or Inguinal Adenopathy Neurological: Cranial nerves II-XII grossly intact, Neuro grossly intact Psych/Mental Status: Normal Affect, Appropriate Microbiology Past 72 Hours 03/13/20 23:35 Urine, Clean Catch Urine Culture - Final Mixed Gram Pos & Gram Neg Org Laboratory Results 03/16/20 05:40: Hgb 9.7 L, Hct 31.8 L 03/16/20 05:40: Sodium 141, Potassium 3.7, Chloride 110 H, Carbon Dioxide 25.0, Anion Gap 6, BUN 14, Creatinine 1.17 H, Estim Creat Clear Calc 35.35, Est GFR (MDRD) Af Amer 60, Est GFR (MDRD) Non-Af 50 L, BUN/Creatinine Ratio 12.0, Glucose 83, Calcium 10.2 H Discharge Activity: Return to Normal Activity Return to work on:: 03/21/20 Weight Bearing Status: Weight bearing as tolerated Call your doctor if you observe: Fever of 101 or Higher, Shortness of breath, Dizziness, Fainting spells, Chest pain, Increased palpitations (irregular heartbeat), Uncontrolled pain Home Medications: Medications to take at Discharge Levothyroxine Sodium [Synthroid] 125 mcg PO DAILY 02/23/14 Meclizine HCl [Antivert] 25 mg PO 4X/DAY PRN PRN #40 tablet 02/23/14 Ferrous Sulfate [Iron] 325 mg PO BID 03/04/17 Losartan Potassium [Cozaar] 100 mg PO DAILY 03/04/17 Pantoprazole Sodium [Protonix] 40 mg PO DAILY 10/03/18 Solifenacin Succinate [Vesicare] 5 mg PO DAILY 10/03/18 Ciprofloxacin [Cipro] 500 mg PO BID #8 tab 03/16/20 Following Prescrptions Were Given to Patient: Ciprofloxacin [Cipro] 500 mg PO BID #8 tab Transmission Status: Received by [id number] Primary Care Physician: Mg Matias DO [Primary Care Provider] - Please follow up with your Primary Care Physician in: 1 week. Disposition: Home Minutes spent on discharge:: 32 Patient Condition:: Stable Medical Necessity - Tobacco Use Smoking Status: Former smoker Meaningful Use Info Meaningful Use Diagnoses (Choose all that apply): None applicable Inpatient E&M: 96427 Disch Hosp
--- NOTE | 2020-04-04 09:54 | CASEMGMT ---
Social Work Discharge follow up Phone call: Discharge Date: 03/10/20 Call Date: 04/04/20 Callt Time: 9:55 Reason for Follow up: following up regarding advanced care planning Summary of Call: Pt confirms she received information about advance directives however, she has not made a decision on who to name as health care power of assistant district attorney and is not ready to complete documents. Interventions: SW reinforced importance of documents and encouraged pt to think about options and complete advance directives. SW informed pt that [facility] SW can assist with paperwork when pt decides to complete and provided contact information. No further needs requested or indicated. ARANZA Child
== END 2020-03-16 10:17 | disposition home or self-care (01) | DRG 872 ==
LOC: ED 22:46 → PCU 03-14 00:45 → ICU 03-14 01:58 → PCU 03-16 07:23
PROVIDERS: Internal Medicine Nephrology; Admitting Provider Hospitalist; Emergency Provider Emergency Medicine; PCP Family Medicine; Visit Provider Hospitalist
DX: A41.9 Sepsis, unspecified organism (principal); N30.00 Acute cystitis without hematuria; N17.9 Acute kidney failure, unspecified; Z68.41 Body mass index [BMI] 40.0-44.9, adult; R00.1 Bradycardia, unspecified; T44.7X5A Adverse effect of beta-adrenoreceptor antagonists, initial encounter; K21.9 Gastro-esophageal reflux disease without esophagitis; Z87.891 Personal history of nicotine dependence; E89.0 Postprocedural hypothyroidism; Z85.850 Personal history of malignant neoplasm of thyroid; Z79.899 Other long term (current) drug therapy; I95.1 Orthostatic hypotension; E66.01 Morbid (severe) obesity due to excess calories; I12.9 Hypertensive chronic kidney disease with stage 1 through stage 4 chronic kidney disease, or unspecified chronic kidney disease; N18.3 Chronic kidney disease, stage 3 (moderate); E21.0 Primary hyperparathyroidism; E86.0 Dehydration; D63.1 Anemia in chronic kidney disease; R65.20 Severe sepsis without septic shock
CPT/HCPCS: 36415; 71045; 76770; 80048; 80053; 81001; 82570; 83605; 84300; 84443; 84484; 85014; 85018; 85025; 87040; 87086; 87088; 93005; 97162; 97165; 97802; 99285; J7030; J7050; J7120; A4216

== ENCOUNTER 2020-03-20 08:00 | Outpatient (RCR) | payer OTHER, SELFPAY | END 2020-03-20 23:59 | LOC: NS 08:00 | PROVIDERS: Family Provider Family Medicine; PCP Family Medicine; Visit Provider Family Medicine | DX: Z71.3 Dietary counseling and surveillance (principal); E66.01 Morbid (severe) obesity due to excess calories; Z68.42 Body mass index [BMI] 45.0-49.9, adult | CPT/HCPCS: 97803 ==

== ENCOUNTER 2020-04-03 09:14 | Outpatient (RCR) | payer OTHER, SELFPAY ==
[2020-03-14 01:10] VITALS: BMI 41.9
== END 2020-04-20 23:59 ==
LOC: NS 09:14
PROVIDERS: Family Provider Family Medicine; PCP Family Medicine; Visit Provider Family Medicine
DX: Z71.3 Dietary counseling and surveillance (principal); E66.01 Morbid (severe) obesity due to excess calories; Z68.42 Body mass index [BMI] 45.0-49.9, adult
CPT/HCPCS: 97803

== ENCOUNTER 2020-05-08 08:30 | Outpatient (RCR) | payer OTHER, SELFPAY ==
[2020-03-14 01:10] VITALS: BMI 41.9
== END 2020-05-21 23:59 ==
LOC: NS 08:30
PROVIDERS: Family Provider Family Medicine; PCP Family Medicine; Visit Provider Family Medicine
DX: Z71.3 Dietary counseling and surveillance (principal); E66.01 Morbid (severe) obesity due to excess calories; Z68.42 Body mass index [BMI] 45.0-49.9, adult
CPT/HCPCS: 97803

== ENCOUNTER 2020-05-30 08:30 | Outpatient (RCR) | payer OTHER, SELFPAY ==
[2020-03-14 01:10] VITALS: BMI 41.9
== END 2020-05-30 23:59 | disposition home or self-care (01) ==
LOC: NS 08:30
PROVIDERS: Family Provider Family Medicine; PCP Family Medicine; Visit Provider Family Medicine
DX: Z71.3 Dietary counseling and surveillance (principal); E66.01 Morbid (severe) obesity due to excess calories; Z68.42 Body mass index [BMI] 45.0-49.9, adult
CPT/HCPCS: 97803

== ENCOUNTER 2021-05-11 12:05 | Emergency (ER) | payer OTHER, SELFPAY ==
[2021-05-11 12:06] VITALS: BP 196/104; PULSE 70; RESP 16; TEMP 37.2; O2SAT 99; BMI 48.3
--- NOTE | 2021-05-11 12:27 | ED.VIS.BACK ---
HPI History of Present Illness Chief Complaint: Back Informant: patient Onset/Context/Timing Onset: Days (3 days) Context: Gradual Onset Injury: twisting and repetitive motion Quality: Aching and Throbbing Location: See diagram, Lumbar and Buttock Current Severity: Moderate Maximum Severity: Severe Associated Symptoms Associated Symptoms: Radiation to Right Leg Narrative Narrative: Patient presents secondary to low back pain radiating to her right hip. Patient has a history of a bulging disc. She was doing well until 3 days ago when she did some yard work. She states she was mowing the lawn and using the weedeater. Following this she had right low back pain. She is been taking Tylenol and ibuprofen. Last evening she got into a hot bath but then had difficulty getting out of the tub causing increased pain. Patient states pain will radiate into the right buttock. She will occasionally have pain that shoots down the right leg. No problems with bowel or bladder control. No direct injury or fall. [facility] Medical History (Updated 05/11/21 @ 12:[address] Sara Staples MD) Hypertension Hypothyroidism Home Medications levothyroxine [Synthroid] 125 mcg PO DAILY 02/23/14 [History Last Taken 03/13/20 18:00] meclizine 25 mg PO 4X/DAY PRN PRN #40 tab 02/23/14 [Rx Last Taken Unknown] ferrous sulfate [Iron (ferrous sulfate)] 325 mg PO BID 03/04/17 [History Last Taken 03/12/20 18:00] losartan 100 mg PO DAILY 03/04/17 [History Last Taken 03/13/20 18:00] pantoprazole 40 mg PO DAILY 10/03/18 [History Last Taken 03/13/20 18:00] solifenacin [Vesicare] 5 mg PO DAILY 10/03/18 [History Last Taken Unknown] ciprofloxacin HCl 500 mg PO BID #8 tab 03/16/20 [Rx Last Taken Unknown] cyclobenzaprine 10 mg PO BID PRN #10 tab 05/11/21 [Rx Last Taken Unknown] hydrocodone-acetaminophen 1 tab PO Q6H PRN 3 Days #10 tab 05/11/21 [Rx Last Taken Unknown] prednisone 60 mg PO DAILY #12 tab 05/11/21 [Rx Last Taken Unknown] Allergy/AdvReac Type Severity Reaction Status Date / Time No Known Allergies Allergy Verified 05/11/21 12:06 Social History Smoking Status: Former smoker ROS ROS ED Constitutional Constitutional ED: Denies chills or fever(s) Eyes Eyes: Denies change in vision ENT ENT ED: Denies sore throat Cardiovascular Cardiovascular: Denies chest pain Respiratory/Chest Respiratory/Chest: Denies cough or dyspnea Gastrointestinal Gastrointestinal: Denies abdominal pain, diarrhea, nausea or vomiting Genitourinary Genitourinary ED: Denies dysuria Musculoskeletal Musculoskeletal: Reports back pain Integumentary Denies rash Neurologic Neurologic: Denies headache(s), paresthesias or weakness Allergic/Immunologic Allergic/Immunologic ED: Denies urticaria EXAM Physical Exam Const Vital Signs: 05/11/21 12:06 Temperature 98.9 F Temperature Source Temporal Pulse Rate 70 Respiratory Rate 16 Blood Pressure 196/104 H Blood Pressure Mean 134 Pulse Ox 99 Oxygen Delivery Method Room Air Positive well nourished and well developed General Appearance ED: well developed HEENT Reports normocephalic and head/scalp atraumatic Eyes PERRL and EOMs intact bilaterally Neck supple Chest Wall inspection of chest normal and palpation of chest normal Resp normal respiratory effort and clear to auscultation bilaterally Cardio regular rate and regular rhythm GI Palpation: soft Back/Spine no CVA tenderness Back/Spine Narrative: Tenderness palpation of the right low lumbar paraspinal muscles and over the right SI joint. No midline tenderness. No erythema. Extremity normal to inspection Neuro oriented x3 and no sensory deficits noted Neuro Narrative: Patient able to stand on tiptoes and heels without difficulty. Normal sensation on testing. Sensorium / Orientation: alert Motor Exam: strength 5/5 throughout Psych mental status grossly normal Skin no rashes or lesions noted MDM MDM MDM Narrative Medical decision making narrative: Patient had no direct fall. I do not believe imaging is needed at this time. She will be treated with [facility], prednisone, Flexeril. She will continue anti-inflammatories at home. Discharge Plan Triage Chief Complaint: Back ED Provider: Sara Staples Dx/Rx/DC Orders Clinical Impression: Sciatica Instructions: ED Sciatica Prescriptions: New hydrocodone-acetaminophen 5-325 mg tablet 1 tab PO Q6H PRN (Reason: pain) 3 Days Qty: 10 RF: 0 prednisone 20 mg tablet 60 mg PO DAILY Qty: 12 RF: 0 cyclobenzaprine 10 mg tablet 10 mg PO BID PRN (Reason: muscle spasm) Qty: 10 RF: 0 No Action levothyroxine [Synthroid] 200 MCG tablet 125 mcg PO DAILY RF: 0 meclizine 25 MG tablet 25 mg PO 4X/DAY PRN PRN (Reason: Dizziness) Qty: 40 RF: 0 ferrous sulfate [Iron (ferrous sulfate)] 325 MG tablet 325 mg PO BID RF: 0 losartan 100 MG tablet 100 mg PO DAILY RF: 0 pantoprazole 40 MG tablet 40 mg PO DAILY RF: 0 solifenacin [Vesicare] 5 MG tablet 5 mg PO DAILY RF: 0 ciprofloxacin HCl 500 MG tablet 500 mg PO BID Qty: 8 RF: 0 Primary Care Provider: Mg Matias Referrals: Mg Matias DO [Primary Care Provider] - 1 Week if not improving Activity Restrictions/Additional Instructions: You can continue to take ibuprofen along with the pain medication prescribed. The [facility] you are prescribed already has Tylenol in it. Disposition Disposition: Home, Self Care
[2021-05-11] MEDS: cycloBENZAPRine HCl 10 MG Tablet PO (12:50)
[2021-05-11] MEDS: predniSONE 20 MG Tablet 60 MG PO (12:50)
[2021-05-11] MEDS: HYDROcodone Bitartrate/Apap 5/325 Tablet PO (12:50)
== END 2021-05-11 12:56 | disposition home or self-care (01) ==
PROVIDERS: Emergency Provider Emergency Medicine; PCP Family Medicine
DX: M54.30 Sciatica, unspecified side (principal); E03.9 Hypothyroidism, unspecified; I10 Essential (primary) hypertension; Z87.891 Personal history of nicotine dependence; Z79.899 Other long term (current) drug therapy
CPT/HCPCS: 99283

== ENCOUNTER 2024-01-20 20:49 | Emergency (ER) | payer MEDICARE, OTHER, SELFPAY ==
[2024-01-20 20:49] VITALS: BP 161/77; PULSE 62; RESP 15; TEMP 36.4; O2SAT 99; BMI 37.3
[2024-01-20 21:47] LABS: Bacteria 0 SEEN /hpf (None Seen); Mucous, Urine 0 SEEN /hpf (<or=2+); Red Blood Cells-Urine 0 SEEN /hpf (0-5)
[2024-01-20 21:48] LABS: Absolute Lymphocyte Count 2.83 X10^3/uL (0.83-4.51); Absolute Neutrophil Count 5.2 X10^3/uL (2.0-7.7); Basophil# 0.06 X10^3/uL; Basophil% 0.7 % (0-1); Color, Urine Yellow (Yellow); Eosinophil# 0.25 X10^3/uL; Eosinophils% 2.8 % (0-5); Glucose, Dipstick Normal (Normal); Hemoglobin 11.8 g/dL (12.0-15.0); Leukocyte Esterase-Dipstick 25 /ul (Negative); Lymphocyte # 2.83 X10^3/ul (0.83-4.51); Lymphocyte % 31.7 % (19-41); Mean Corp Hgb Conc 31.1 g/dL (32-36); Mean Corpuscular Hgb 28.8 pg (27.0-32.0); Mean Corpuscular Volume 92.7 fL (81-99); Mean Platelet Vol. 12.4 fl (6.2-12.0); Monocyte# 0.57 X10^3/uL; Monocyte% 6.4 % (0-10); NRBC Flagged by Analyzer 0 % (0-5); Neutrophil % 58.2 % (47-70); Nitrite-Dipstick Negative (Negative); Occult Blood-Urine Negative /ul (Negative); Platelet Count 191 K/mm3 (150-450); Protein-Dipstick 15 mg/dl (Negative); RBC Distribution Width CV 14.6 % (11.6-14.6); Specific Gravity, Urine 1.025 (1.002-1.030); Urine Clarity Clear (Clear); Urine Urobilinogen 4 mg/dl (Normal); White Blood Count 8.9 K/mm3 (4.4-11.0)
[2024-01-20 21:56] LABS: Ketone-Dipstick 150 mg/dl (Negative); Urine Bilirubin Dipstick 1 mg/dL (Negative)
[2024-01-20 21:58] LABS: Squamous Epithelial Cells - UA 0-5 SEEN /hpf (5-10); White Blood Cells 0-5 SEEN /hpf (0-5)
[2024-01-20 22:09] LABS: AST(SGOT) 18 U/L (15-37); Alanine Aminotransfer ALT/SGPT 17 U/L (13-56); Albumin, Serum 3.7 g/dL (3.2-5.0); Alkaline Phosphatase 90 U/L (45-117); Anion Gap 8 (5-15); BUN 16 mg/dL (7-18); BUN/Creat Ratio 21.5 RATIO (10-20); Calcium,Total 10.4 mg/dL (8.5-10.1); Chloride 109 mmol/L (98-107); Creatinine, Serum 0.74 mg/dL (0.55-1.02); EST Glomerular Filtration Rate 83 mL/min (>60); Est Glom Filt Rate - Afr Amer 100 mL/min (>60); Estimated Creatinine Clearance 66.74 ml/min; Globulin 3.8 g/dL (2.2-4.2); Glucose 82 mg/dL (74-106); Potassium 3.9 mmol/L (3.5-5.1); Protein, Total 7.5 g/dL (6.4-8.2); Sodium Level 141 mmol/L (136-145)
--- NOTE | 2024-01-20 22:32 | CT_ITS ---
EXAM: CT ABDOMEN AND PELVIS WITH INTRAVENOUS CONTRAST CLINICAL INDICATION: abdominal pain TECHNIQUE: Helically acquired images were obtained of the abdomen and pelvis with intravenous contrast. This CT exam was performed using one or more of the following dose reduction techniques: automated exposure control, adjustment of the mA and/or kV according to patient size, and/or use of iterative reconstruction technique. CONTRAST: IV 100mL [id number] COMPARISON: Renal ultrasound, 03/14/2020 FINDINGS: LOWER THORAX: Wall thickening of the distal esophagus and gastroesophageal junction perhaps secondary to postoperative changes or distal esophagitis. Coronary artery calcifications. Lung bases are clear. No cardiomegaly. No significant pericardial effusion. ABDOMEN: LIVER: No significant abnormality. Homogeneous. No focal mass. GALLBLADDER AND BILE DUCTS: Status post cholecystectomy. No intra- or extrahepatic biliary ductal dilation. PANCREAS: No significant abnormality. No focal cystic or solid mass. SPLEEN: No significant abnormality. Normal size without focal cystic or solid mass. ADRENALS: No significant abnormality. No nodules. KIDNEYS AND URETERS: No significant abnormality. Normal renal size and position. No hydronephrosis. STOMACH AND BOWEL: Wall thickening of the gastric pouch with hazy serosal margins perhaps indicative of a gastritis. Moderate well-formed distal colonic and rectal stool. Status post Katarina-en-Y gastric bypass. PELVIS: APPENDIX: No evidence of acute appendicitis. BLADDER: No significant abnormality. REPRODUCTIVE: Normal as visualized. No mass. ABDOMEN and PELVIS: INTRAPERITONEAL SPACE: No significant abnormality. No ascites or other fluid collection. No free air. BONES/JOINTS: Degenerative changes in the spine. No suspicious lytic or blastic abnormality. SOFT TISSUES: No significant abnormality. No discrete abdominal or pelvic wall hernia. VASCULATURE: No aortic aneurysm. Atherosclerosis. LYMPH NODES: No significant abnormality. No enlarged lymph nodes. CT/Abdomen/Pelvis W IV Cont ONLY IMPRESSION: 1. Wall thickening of the distal esophagus and gastroesophageal junction perhaps secondary to postoperative changes or distal esophagitis. 2. Wall thickening of the gastric pouch with hazy serosal margins perhaps indicative of a gastritis. 3. Status post Katarina-en-Y gastric bypass. No evidence of bowel obstruction. Electronically Signed: Stephan Quintanilla DO at 23:16 EDT ,
[2024-01-20 22:49] VITALS: BP 153/67; PULSE 88; RESP 18; O2SAT 100
--- NOTE | 2024-01-20 22:49 | EDS_ITS ---
HPI HPI - GI History of Present Illness Chief Complaint: Abd Pain Narrative Narrative: 68-year-old female with history of gastric bypass presenting with nausea, vomiting x 4 days. She states every time she tries to eat within 10 minutes she gets sick and vomits. She complains of pain in the epigastrium. Patient also states she has history of hiatal hernia. Patient states that 4 days ago she noted while she was trying to use a plunger but she felt some sharp pain right lower her pain is now on some sensation in the she denies any black or bloody stools or emesis. No fevers or chills. No one is sick in the household. No history of pancreatitis. She does not have a gallbladder. [facility] Medical History Back pain Hypertension Hypothyroidism Home Medications levothyroxine 200 mcg tablet (Synthroid) 125 mcg PO DAILY Thyroid 02/23/14 [History Last Taken 03/13/20 18:00] meclizine 25 mg tablet 25 mg PO 4X/DAY PRN PRN Dizziness #40 tabs 02/23/14 [Rx Last Taken Unknown] ferrous sulfate 325 mg (65 mg iron) tablet (Iron (ferrous sulfate)) 325 mg PO BID Supplement 03/04/17 [History Last Taken 03/12/20 18:00] losartan 100 mg tablet 100 mg PO DAILY BP 03/04/17 [History Last Taken 03/13/20 18:00] pantoprazole 40 mg tablet,delayed release 40 mg PO DAILY GI 10/03/18 [History Last Taken 03/13/20 18:00] solifenacin 5 mg tablet (Vesicare) 5 mg PO DAILY Over active bladder 10/03/18 [History Last Taken Unknown] cyclobenzaprine 10 mg tablet 10 mg PO BID PRN muscle spasm #10 tabs 05/11/21 [Rx Last Taken Unknown] hydrocodone-acetaminophen 5-325mg 5mg-325mg 1 tab PO Q6H PRN pain 3 days #10 tabs 05/11/21 [Rx Last Taken Unknown] prednisone 20 mg tablet 60 mg (3 x 20 mg) PO DAILY #12 tabs 05/11/21 [Rx Last Taken Unknown] lidocaine HCl 2 % mucosal solution (Lidocaine Viscous) 5 ml mucous membrane TID PRN pain #100 mL 01/21/24 [Rx Last Taken Unknown] promethazine 25 mg tablet 25 mg PO TID PRN nausea and vomiting #20 tabs 01/21/24 [Rx Last Taken Unknown] sucralfate 1 gram tablet (Carafate) 1 g PO TID PRN epigastric pain #20 tabs 01/21/24 [Rx Last Taken Unknown] Allergy/AdvReac Type Severity Reaction Status Date / Time No Known Allergies Allergy Verified 01/20/24 20:54 Social History Smoking Status: Former smoker ROS ROS ED Constitutional Constitutional ED: Denies chills, fever(s) or sweats Eyes Eyes: Denies blurry vision or change in vision ENT ENT ED: Denies ear pain or sore throat Cardiovascular Cardiovascular: Denies chest pain, palpitations or racing heartbeat Respiratory/Chest Respiratory/Chest: Denies cough, dyspnea or sputum Gastrointestinal Gastrointestinal: Reports abdominal pain, nausea and vomiting; Denies constipation or diarrhea Genitourinary Genitourinary ED: Denies dysuria, hematuria or urinary frequency Musculoskeletal Musculoskeletal: Denies arthralgias, myalgias or neck pain Integumentary Denies abscess, Abrasions or rash Neurologic Neurologic: Denies headache(s), paresthesias or weakness Psychiatric Psychiatric: Denies anxiety, depression, suicidal ideation or suicidal thoughts Endocrine Endocrinology: Denies polydipsia or polyuria EXAM Physical Exam Const Vital Signs: 01/20/24 20:49 01/20/24 22:49 01/21/24 00:00 Temperature 97.5 F L Temperature Source Temporal Pulse Rate 62 88 86 Respiratory Rate 15 18 16 Blood Pressure 161/77 H 153/67 H 144/76 H Blood Pressure Mean 105 95 98 Pulse Ox 99 100 97 Oxygen Delivery Method Room Air Room Air Room Air 01/21/24 00:28 Temperature 97.5 F L Temperature Source Pulse Rate 86 Respiratory Rate 16 Blood Pressure 144/76 H Blood Pressure Mean 98 Pulse Ox 97 Oxygen Delivery Method Positive well nourished General Appearance ED: NAD; Negative for pallor HEENT Reports TM's clear atraumatic Tympanic Membrane ED: Yes TM's clear Eyes PERRL and EOMs intact bilaterally Neck no lymphadenopathy Resp normal respiratory effort and clear to auscultation bilaterally Auscultation: Negative for rales, rhonchi or wheezes Cardio regular rate and regular rhythm GI non-tender and non-distended Palpation: soft and tender epigastric Back/Spine no CVA tenderness Neuro CN's II-XII intact bilaterally, moves all extremities and no sensory deficits noted Sensorium / Orientation: alert Psych mental status grossly normal Skin no wounds General Skin Exam: Negative for jaundice or pallor MDM MDM MDM Narrative Medical decision making narrative: 68-year-old female presenting with epigastric pain, nausea, vomiting. She has had a gastric bypass, cholecystectomy, hiatal hernia repair. This performed at . This was distantly. Patient states he is not able to hold your medications down. Patient presenting with right flank pain. Differential includes colitis, diverticulitis, gastritis, pancreatitis, constipation, appendicitis, UTI, pyelonephritis, calculi, ureteral calculi, obstruction, malignancy, dehydration, electrolyte abnormalities. Patient medicated with morphine and she states that Zofran has not been helping her so I gave her Reglan. CBC shows normal white blood cell count 8.9. Hemoglobin 9.8. Platelets are normal at 191. Renal function at appears normal. There is some slight prerenal azotemia. Patient was given IV fluids. CBC shows normal white blood cell count 8.9. Hemoglobin 11.8. Platelets are normal at 191. Renal function electrolytes are normal. LFTs are normal. Urinalysis is negative. CT of the abdomen pelvis with IV contrast was obtained and shows gastritis and esophagitis which is consistent with patient's history. On reevaluation patient states she still having some discomfort which was initially worse after morphine and is now better but it is back at 6. She states her nausea is gone. I gave her a GI cocktail and her pain is down to a 2 or 3 now and she feels better. I will write her prescription for Phenergan since her Zofran was not working and give her some viscous lidocaine and Carafate. She is to take her PPI. She is to start with clear liquids and advance her diet slowly. Return precautions discussed. Impression: 1. Gastritis 2. Esophagitis 3. Nausea/vomiting 4. Abdominal pain Lab Data Attestation: I reviewed the patient's lab results. Labs: Laboratory Results - last 24 hr 01/20/24 21:41 WBC 8.9 RBC 4.10 L Hgb 11.8 L Hct 38.0 MCV 92.7 MCH 28.8 MCHC 31.1 L RDW Std Deviation 50.0 H RDW Coeff of Dwain 14.6 Plt Count 191 MPV 12.4 H Immature Gran % (Auto) 0.200 Neut % (Auto) 58.2 Lymph % (Auto) 31.7 [place] % (Auto) 6.4 Eos % (Auto) 2.8 Baso % (Auto) 0.7 Absolute Neuts (auto) 5.2 Absolute Lymphs (auto) 2.83 Nucleated RBC % 0 Sodium 141 Potassium 3.9 Chloride 109 H Carbon Dioxide 24.0 Anion Gap 8 BUN 16 Creatinine 0.74 Estim Creat Clear Calc 66.74 Est GFR (MDRD) Af Amer 100 Est GFR (MDRD) Non-Af 83 BUN/Creatinine Ratio 21.5 H Glucose 82 Calcium 10.4 H Total Bilirubin 1.20 H AST 18 ALT 17 Alkaline Phosphatase 90 Total Protein 7.5 Albumin 3.7 Globulin 3.8 Albumin/Globulin Ratio 1.0 Urine Color Yellow Urine Clarity Clear Urine pH 5.0 Ur Specific [place] 1.025 Urine Protein 15 H Urine Glucose (UA) Normal Urine Ketones 150 A* Urine Occult Blood Negative Urine Nitrite Negative Urine Bilirubin 1 H Urine Urobilinogen 4 H Ur Leukocyte Esterase 25 H Urine RBC 0 SEEN Urine WBC 0-5 SEEN Ur Squamous Epith Cells 0-5 SEEN Urine Bacteria 0 SEEN Urine Mucus 0 SEEN Radiography Diagnostic Testing: Clinical Impression(s) from Imaging Studies Abdomen/Pelvis CT 01/20/24 22:32 IMPRESSION: 1. Wall thickening of the distal esophagus and gastroesophageal junction perhaps secondary to postoperative changes or distal esophagitis. 2. Wall thickening of the gastric pouch with hazy serosal margins perhaps indicative of a gastritis. 3. Status post Katarina-en-Y gastric bypass. No evidence of bowel obstruction. Electronically Signed: Stephan Quintanilla DO at 23:16 EDT , Discharge Plan Triage Chief Complaint: Abd Pain ED Provider: Zhou Gunn Dx/Rx/DC Orders Instructions: ED Abdominal Pain Unkn Cause Fem, ED Gastritis (Adult) Prescriptions: New lidocaine HCl [Lidocaine Viscous] 2 % solution 5 ml mucous membrane TID PRN (Reason: pain) Qty: 100 0RF promethazine 25 mg tablet 25 mg PO TID PRN (Reason: nausea and vomiting) Qty: 20 0RF sucralfate [Carafate] 1 gram tablet 1 g PO TID PRN (Reason: epigastric pain) Qty: 20 0RF No Action levothyroxine [Synthroid] 200 MCG tablet 125 mcg PO DAILY Patient Comments: THYROID Rx Instructions: except on thursday she takes 2 meclizine 25 MG tablet 25 mg PO 4X/DAY PRN PRN (Reason: Dizziness) Qty: 40 0RF Patient Comments: VERTIGO ferrous sulfate [Iron (ferrous sulfate)] 325 MG tablet 325 mg PO BID Patient Comments: ANEMIA losartan 100 MG tablet 100 mg PO DAILY Patient Comments: BP pantoprazole 40 MG tablet 40 mg PO DAILY solifenacin [Vesicare] 5 MG tablet 5 mg PO DAILY hydrocodone-acetaminophen 5-325 mg tablet 1 tab PO Q6H PRN (Reason: pain) 3 Days Qty: 10 0RF prednisone 20 mg tablet 60 mg PO DAILY Qty: 12 0RF cyclobenzaprine 10 mg tablet 10 mg PO BID PRN (Reason: muscle spasm) Qty: 10 0RF Primary Care Provider: Mg Matias Referrals: Mg Matias DO [Primary Care Provider] - Disposition Disposition: Home, Self Care
[2024-01-20] MEDS: 0.9% Normal Saline (1000mL) 1,000 ML 999 ML IV (23:01)
[2024-01-20] MEDS: Metoclopramide 10 MG/2 ML Vial IV (23:01)
[2024-01-20] MEDS: Morphine 4 MG/ML Syringe IV (23:01)
[2024-01-21] VITALS: BP 144/76; PULSE 86; RESP 16; O2SAT 97
[2024-01-21] MEDS: Ondansetron 4 MG/2 ML Vial IV
[2024-01-21] MEDS: Mag Hydrox/Al Hydrox/Simeth 30 ML UDC PO
[2024-01-21 00:28] VITALS: BP 144/76; PULSE 86; RESP 16; TEMP 36.4; O2SAT 97
== END 2024-01-21 00:42 | disposition home or self-care (01) ==
PROVIDERS: Emergency Provider Student in an Organized Health Care Education/Training Program; PCP Family Medicine; Visit Provider Student in an Organized Health Care Education/Training Program
DX: K29.70 Gastritis, unspecified, without bleeding (principal); Z87.891 Personal history of nicotine dependence; K20.90 Esophagitis, unspecified without bleeding; Z98.84 Bariatric surgery status; Z87.19 Personal history of other diseases of the digestive system; I10 Essential (primary) hypertension; Z90.49 Acquired absence of other specified parts of digestive tract
CPT/HCPCS: 74177; 80053; 81001; 85025; 96361; 96374; 96375; 99283; J7030; Q9967; A4216; J2405

== ENCOUNTER 2024-06-16 10:30 | Outpatient (RCR) | payer MEDICARE, OTHER, SELFPAY ==
--- NOTE | 2024-05-20 13:04 | HP.PTEVAL_ITS ---
Patient's Visit Information Visit Information Visit Information: NOHELIA FRASER is a 68 year old F referred to Physical Therapy by NAIMA Mcgee with a diagnosis of Chronic right sided low back pain with Bilaterally sciatica. Date of Evaluation: 05/12/24 Physical Therapist: Sylvester Sabillon DPT Visit Plan Frequency: 2x /Week Duration: 6 Weeks Plan: pt. to have an MRI next week. I gave her some extension exercise as [facility]. She is to trial this until MRI. May trial pool as this have been helpful in the past. Subjective Subjective: Pt. his here today for her initial evaluation with diagnosis of Chronic right sided low back pain with Bilaterally sciatica. Pt. reports having increased R sided pain for a few years now. She reports having R sided foot drop, but not constantly. Pt. reports having L sided hip and leg pain for years and now is more on the right side. Pt reports no pain in AMs, but is worse as the day progresses. Pt. reports prolonged sitting is more painful. Pt. reports increased pain at work. Pt. is to have MRI next week. 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 She did have injections a few years ago with temp relief. Pain Lumbar spine: Pain Intensity (Out of 10): 3 Pain Intensity Range: 2 and 7 RLE: Pain Intensity (Out of 10): 0 Comment: numbness in R foot LLE: Pain Intensity (Out of 10): 1 Pain Intensity Range: 0 and 3 Objective Objective: POSTURE: Pt. has a general flexed posture. Pt. has normal [place] and no marked lateral wt. shifting. PALPATION: Pt. has no tenderness in BLEs. Pt. has tenderness at her Lumbar spine both a long spinous process throughout and at B erector spinae. NEURO: Pt. has normal sensation throughout BLEs. Pt. has decreased R patellar and achilels DTR 1+ and 2+ on L side. Pt. is able to rise on toes, but less so on heels. ROM: LUMBAR SPINE: flexion mod loss increase NW, ext mod loss increase NW, SB min loss bilat NE, rotation min loss NE bilat. Pt. has slight tigthness in B HS and B hip flexors. MMT: RLE: ankle: PF 5/5, DF 4+/5; knee: ext 4+/5, flexion 5/5; hip: flexion 4+/5, abd 4+/5. LLE: ankle 5/5 throughout; knee 5/5 throughout; hip: flexion 5/5, abd 4+/5,. Core strength poor+. GAIT: Pt. ambulates with good control. No marked antalgic pattern noted. With increased walking she did have 1 occassional when she caught her R foot with minimal clearance. STAIR: No issues with 2 HR. Special Tests L/S Slump test left side: Negative L/S Slump test right side: Negative L/S Left Straight Leg Raise: Negative L/S Right Straight Leg Raise: Negative Lumbar Standing: Flexion - Mechanical Response: No effect Lumbar Standing: Flexion - Symptoms During Testing: No effect Lumbar Standing: Flexion - Symptoms After Testing: No effect Lumbar Standing: Extension - Mechanical Response: No effect Lumbar Standing: Extension - Symptoms During Testing: Centralizing Lumbar Standing: Extension - Symptoms After Testing: No better Lumbar Standing: Right Side Glides - Mechanical Response: No effect Lumbar Standing: Right Side [place] - Symptoms During Testing: No effect Lumbar Standing: Right Side [place] - Symptoms After Testing: No effect Lumbar Standing: Left Side [place] - Mechanical Response: No effect Lumbar Standing: Left Side [place] - Symptoms During Testing: No effect Lumbar Standing: Left Side [place] - Symptoms After Testing: No effect Goals Goal 1:: LTG: Pt. to be I with HEP. Goal Time Frame: 4-6 Weeks Goal 2:: LTG: Pt. to be able to complete all work related activities without limitations. Goal Time Frame: 4-6 Weeks Goal 3:: LTG: pt. to have increase lumbar ROM to full without increase in low back or BLE symptoms. Goal Time Frame: 4-6 Weeks Goal 4:: LTG: pt. to be able to ambulate without incidents of R foot clearance issues. Goal Time Frame: 4-6 Weeks Goal 5:: LTG: pt. to have increased RLE strength symmetrical to L side. Goal Time Frame: 4-6 Weeks Rehabilitation Potential Physical Therapy Diagnosis: Pt. has signs and symptoms consistent with Chronic right sided low back pain with Bilaterally sciatica. Pt. has marked hypomobility and some discogenic symptoms noted. I am conserned about her R sided foot drop, but also the chronic nature of her B LE symptoms. I would like to work on some directional preference movements to see if we can centralize her symptoms. Rehabilitation Potential: Good Anticipated Interventions Patient/Client Instruction: Educate patient on: Condition, Plan of Care, Risk Factors and Benefits of Fitness Program For the Purpose of:: To improve decision making, To facilitate caregiver knowledge, To improve self management, To prevent re-injury and To improve ability to perform tasks related to life management Therapeutic Exercise to Include: Strength training, Power training, Postural training, Flexibilty training, Gait and locomotor training, In an aquatic setting, Passive ROM, Active ROM, Dynamic Lumbar Stabilization and [place] Exercises For the Purpose of:: To decrease pain, To decrease swelling/inflammation, To increase ROM, To improve nutrient delivery to tissue, To increase oxygenation perfusion, To improve muscle performance and motor function, To improve ability to perform ADL's, To increase tolerance to activity/condition/position, To decrease level of supervision to perform tasks, To improve health of tissue, To decrease soft tissue restriction and To increase flexibility/ROM Text: Thank you for the opportunity to evaluate your patient. For Medicare and Medicare HMO plans, please review the plan of care and approve it. It will need to be FAXED BACK to us at [phone] for Medicare purposes. For Medicare only, by signing this I certify the plan of care. Please let me know if there are questions or concerns regarding this plan of care. Physician Signature: Date:
--- NOTE | 2024-06-16 10:45 | HP.PTDCSUM ---
Discharge Summary D/C summary: It has been my pleasure to treat NOHELIA FRASER referred by NAIMA Mcgee, with the diagnosis of Chronic right sided low back pain with Bilaterally sciatica for a total of 9 visit(s). Discharge Date: 06/16/24 Please see the following information for a summary of their discharge status. Subjective Subjective: Pt. is here today for her re assessment of her back after completing aquatic therapy. Pt. reports she had a conversation with her PCP about her MRI and reports she might need to look into a surgeon. Pt. reports she is still having pain down her legs at times, but not currently. Pain Lumbar spine: Pain Intensity (Out of 10): 4 RLE: Pain Intensity (Out of 10): 0 LLE: Pain Intensity (Out of 10): 0 Overall Improvement % Improvement: 20 Objective Objective/Function: Pt. continues to report increased pain in BLEs after working a full day. She is also having increased R foot drop after a full day of work as well. pt. is still having N/T and burning down BLEs. Pt. does have a appt with Dr. Romero ROM: Lumbar spine flexion min loss increase lumbar pull, ext mod loss increase in symptoms, SB L nil loss NE, SB R min loss increase NW, rotation L min loss increase NW, rotation R nil loss NE. MMT: Pt. was with in 10% strength from R to L throughout muscle groups. GAIT: Pt. ambulates without AD. She did okay today without much marked R foot clearance issues, but she reports having increased issues with this as the day progresses. Goals Goal 1:: LTG: Pt. to be I with HEP. Goal Progress: Goal Met Goal 2:: LTG: Pt. to be able to complete all work related activities without limitations. Goal Progress: Not Progressing Goal 3:: LTG: pt. to have increase lumbar ROM to full without increase in low back or BLE symptoms. Goal Progress: Not Progressing Goal 4:: LTG: pt. to be able to ambulate without incidents of R foot clearance issues. Goal Progress: Not Progressing Goal 5:: LTG: pt. to have increased RLE strength symmetrical to L side. Goal Progress: Progressing Plan Plan: At this point in time I would recommend that she follow up with a surgeon to discuss options. I would like to her continue with her aquatic strengthening exercises. She has increased access with new adjusted hours. She will do this for the next few weeks then follow up with Dr. Romero. I will DC her from PT at this point in time. D/C Information d/c sentence: If there are questions or concerns regarding this patient's physical therapy, please feel free to call me at [phone]. Thank you for the referral of this patient. Sincerely, Sylvester Sabillon, DPT Balance/Gait/Functional tests Balance/Special Test Scores Oswestry Low Back Score: 15 Improvement % Improvement: 20
== END 2024-06-16 14:12 | disposition home or self-care (01) ==
LOC: PT 10:30
PROVIDERS: PCP Family Medicine; Referring Provider Physician Assistant; Visit Provider Physician Assistant
DX: M54.41 Lumbago with sciatica, right side (principal); M54.42 Lumbago with sciatica, left side; G89.29 Other chronic pain
CPT/HCPCS: 97110; 97113; 97161; 97530